=== PATIENT | male | born 1950 | race Caucasian/White ===

== ENCOUNTER 2017-03-28 09:31 | Inpatient (IN) ==
[2017-03-28 09:57] LABS: URINE CULTURE PL NEEDED? NO
[2017-03-28 10:04] LABS: MANUAL DIFF NEEDED? NO
[2017-03-28 10:05] LABS: BILIRUBIN URINE NEGATIVE (NEGATIVE); BLOOD URINE NEGATIVE (NEGATIVE); CLARITY CLEAR (CLEAR); COLOR YELLOW; GLUCOSE URINE NEGATIVE (NEGATIVE); LEUKOCYTES URINE NEGATIVE (NEGATIVE); NITRITE URINE NEGATIVE (NEGATIVE); PROTEIN URINE TRACE mg/dL (NEGATIVE); UROBILINOGEN URINE NORMAL
[2017-03-28] MEDS ORDERED: MORPHINE IV ONE ×2 (10:14→11:42)
[2017-03-28] MEDS ORDERED: NS 1,000 ML IV ONE (10:14)
[2017-03-28] MEDS ORDERED: ZOFRAN IV ONE (10:14)
--- NOTE | 2017-03-28 10:16 | Diag Imaging Result Doc PS360 ---
FLAT/UPRIGHT ABD/1 VIEW CHEST - 03/28/2017 INDICATION: ABD PAIN TECHNIQUE: Four views COMPARISON: 07/26/2016 FINDINGS: Stable pacemaker and sternotomy wires. Stable cardiomegaly and significant pulmonary vascular congestion. No definite infiltrates. There are probably trace pleural effusions similar to prior. There are some borderline gaseous distended loops of small bowel in the left mid abdomen measuring up to 3.5 cm. There is gas and stool throughout the colon. No free air or abnormal calcifications. Stable surgical clips in the right upper quadrant. IMPRESSION: 1. Abnormal but nonspecific bowel gas pattern with some dilated loops of small bowel. 2. Cardiomegaly and significant pulmonary vascular congestion. Probable small effusions. Electronically signed by Aly Smith 03/28/2017 10:14 AM
[2017-03-28 10:25] LABS: CALCIUM 9.8 mg/dL (8.8-10.2); POTASSIUM 4.9 mmol/L (3.5-5.1); TOTAL BILIRUBIN 1.1 mg/dL (0.20-1.00); TOTAL PROTEIN 7.9 g/dL (6.3-8.3)
[2017-03-28 10:40] LABS: URINE CAST NONE SEEN /LPF; URINE CRYSTAL NONE SEEN /HPF; URINE EPITHELIAL CELLS <10 /HPF (<10); URINE RBC <10 /HPF (<10); URINE SOURCE CLEAN CATCH; URINE WBC <10 /HPF (<10)
--- NOTE | 2017-03-28 11:04 | Diag Imaging Result Doc PS360 ---
CT ABD/PELVIS W/ IV CONT ONLY - 03/28/2017 INDICATION: Abd pain TECHNIQUE: A CT dose reduction protocol was used. COMPARISON: 09/08/2015, 07/27/2016 FINDINGS: Stable cardiomegaly and surgical changes to the heart. There is some pulmonary vascular congestion and possible interstitial pulmonary edema in the lung bases. There is mild fatty change of the liver. There are cholecystectomy clips. There is a trace amount of ascites. There is extremely heavy vascular disease of the pelvic branches of the aorta. The left common iliac artery is focally completely occluded. There is severe stenosis of the right common iliac artery as well with over 70% narrowing. There is mild stenosis of the proximal superior mesenteric artery. There is severe stenosis of the origin of the inferior mesenteric artery. No bowel obstruction or inflammation visible. No free air. There is a right renal mass in the midpole measuring 2.4 cm. No hydronephrosis or hydroureter. Advanced degeneration of the thoracolumbar spine. No acute bony lesions. IMPRESSION: 1. Suspicious mass of the right kidney. Renal ultrasound recommended. 2. Severe vascular disease. 3. Trace ascites. 4. Cardiomegaly and possible mild pulmonary edema. 5. Fatty change of the liver. Electronically signed by Aly Smith 03/28/2017 11:02 AM
[2017-03-28 11:23] LABS: BASO% 0.3 % (0.0-0.8); EOS# 0.29 X1000 (0.0-0.7); EOS% 4.2 % (0.0-10.0); HEMATOCRIT 38.7 % (42.0-52.0); HEMOGLOBIN 12.9 g/dL (14.0-18.0); IMM GRAN# 0.01 X1000 (0.0-0.04); IMM GRAN% 0.1 % (0.0-0.5); LYMPH# 0.81 X1000 (1.2-3.4); LYMPH% 11.6 % (20.5-51.1); MCH 32.9 PG (27-31); MCHC 33.3 g/dL (33-37); MCV 98.7 FL (81-99); MONO# 0.46 X1000 (0.11-0.59); MONO% 6.6 % (1.7-9.3); MPV 10.5 FL (7.4-10.4); NEUT% 77.2 % (42.2-75.2); PLT 246 X1000 (130-400); RBC 3.92 XMIL (4.7-6.1)
--- NOTE | 2017-03-28 11:42 | PROVIDER DOCUMENTATION ---
This chart was entered by Juan Francisco Powell Scribe, acting as scribe for Primo Murray MD. HPI-Abdominal Pain/GI Problem - General Chief Complaint: Abdominal Pain Stated Complaint: ABD PAIN Time Seen by Provider: 03/28/17 10:00 Source: patient Allergies/Adverse Reactions: Patient Allergies Allergy/AdvReac Type Severity Reaction Status Date / Time amlodipine besylate * AdvReac Intermediate cough Verified 07/05/15 23:09 [facility] acetaminophen [From [place]] AdvReac ITCHING Verified 07/26/16 19:56 hydrocodone bitartrate * AdvReac ITCHING Verified 07/26/16 19:56 [From [facility] [place]] Home Medications: Home Medication List Medication Instructions Recorded Confirmed Last Taken Type Aspirin [Aspir 81] 81 mg PO DAILY 05/03/12 09/08/15 07/05/15 History Carvedilol [Coreg] 6.25 mg PO DAILY 05/03/12 09/08/15 07/05/15 History Cetirizine HCl [Zyrtec] 10 mg PO DAILY 05/03/12 09/08/15 07/05/15 History Fluticasone 50 Mcg Nasal [place] 1 spray CAROLE DIRECTED PRN PRN 05/03/1207/05/15 History [Flonase] Montelukast [Singulair] 10 mg PO DAILY 05/03/12 09/08/15 07/05/15 History Multivitamin [Multiple Vitamins 1 tab PO DAILY 05/03/12 09/08/15 07/05/15 History Daily] Colchicine [Colcrys] 0.6 mg PO DAILY PRN PRN 09/09/13 09/08/15 07/05/15 History Furosemide [Lasix] 20 mg PO DAILY #30 tablet 09/09/13 09/08/15 07/05/15 Rx Hydralazine HCl 25 mg PO BID 09/09/13 09/08/15 07/05/15 History Carvedilol [Coreg] 12.5 mg PO HS 02/25/15 09/08/15 07/05/15 History Losartan [Cozaar] 12.5 mg PO DAILY 02/25/15 09/08/15 07/05/15 History Spironolactone 12.5 mg PO DIRECTED 02/25/15 09/08/15 07/05/15 History Temazepam [Restoril] 7.5 mg PO HS PRN PRN #30 capsule 03/01/15 09/08/15 Rx Febuxostat [Uloric] 40 mg PO DAILY 03/21/15 09/08/15 07/05/15 History Dabigatran Etexilate Mesylate 150 mg BID 07/26/16 07/26/16 Unknown History [Pradaxa] - History of Present Illness-ABD Nature of Presenting Problems: Patient is a 66 y/o m that presents with abdominal pain that began this am. Rates it when it began as severe, but has improved. denies v/d, fever/chills. reports some nausea but belching more than normal and decrease in gas output. He didn't sleep last pm and hasn't slept much this week. denies chest pain and shortness of breath as well. Abdominal Pain Onset Location: reports: periumbilical, suprapubic Quality of Pain: reports: aching, cramping Severity in ED: reports: moderate Onset/Duration: reports: abrupt, this morning Timing: reports: still present, improving Activities at Onset: reports: none Modifying Factors: worse with: palpation Associated Symptoms: reports: nausea, other (belching). denies: chest pain, diarrhea, dizziness, EENT symptoms, fever/chills, genitourinary problems, loss of appetite, shortness of breath, vomiting Similar Symptoms Previously?: No Recently seen or treated by another doctor?: No Review of Systems - Adult - REVIEW OF SYSTEMS - ADULT Constitutional: denies: chills, fever Eyes: reports: no symptoms reported Ears, Nose, Mouth & Throat: denies: ear discharge, epistaxis, sinus problem, throat pain, throat swelling Cardiovascular: denies: chest pain, palpitations, syncope Respiratory: denies: cough, shortness of breath, wheezing Gastrointestinal: reports: abdominal pain, nausea. denies: constipation, diarrhea, rectal bleeding, vomiting Genitourinary: denies: dysuria, frequency, hematuria Musculoskeletal: denies: back pain, joint pain, neck pain Integumentary: reports: no symptoms reported Neurological: reports: no symptoms reported Psychiatric: reports: no symptoms reported Endocrine: reports: no symptoms reported Hematologic/Lymphatic: reports: no symptoms reported Allergic/Immunologic: reports: no symptoms reported All Other Systems: Reviewed and Negative Past History - Adult - PAST MEDICAL HISTORY-ADULT Review of Records: reports: Old Records Reviewed, Nursing Assessment Review, Medications Reviewed Cardiovascular: reports: cardiac disease, CHF Respiratory: reports: COPD Gastrointestinal: reports: GERD - PRIOR SURGERIES/PROCEDURES Surgical/Procedure History: reports: other (IED) - IMMUNIZATION STATUS Childhood Immunizations: See Nurse Assessment Flu Vaccine: See Nurse Assessment - FAMILY HISTORY Family History: reviewed, not pertinent - SOCIAL HISTORY Smoking: quit greater than 1 year, cigarettes Alcohol Use Frequency: occasionally Living Situation: family Physical Exam-General - PHYSICAL EXAM-ADULT Initial Vital Signs Reviewed: Yes - CONSTITUTIONAL General Appearance: alert, mild distress, anxious - EYES Eyes: PERRL/EOMI, pink conjunctivae - HEAD, EARS, NOSE, MOUTH & THROAT HENMT: normocephalic/atraumatic, moist mucous membranes, normal ENT inspection - NECK Neck: full range of motion, normal inspection - RESPIRATORY Respiratory: lungs clear, normal breath sounds, no respiratory distress, no accessory muscle use - CARDIOVASCULAR Cardiovascular: regular rate, rhythm, no edema - GASTROINTESTINAL (ABDOMEN) Abdominal Exam: normal bowel sounds, no organomegaly, no pulsatile mass, distended, tenderness (diffusely generalized) - MUSCULOSKELETAL Back Exam: no CVA tenderness, no vertebral tenderness Extremity: normal range of motion, normal inspection, no pedal edema - SKIN Integumentary: normal color, warm/dry - NEUROLOGIC 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, no motor/sensory deficits - PSYCHIATRIC Psych/Mental Status: normal thought content, normal thought process, oriented x 3, anxious Progress - PLAN OF CARE/RESULTS Progress/Plan/Lab Results: Vital Signs - 8 hr 03/28/17 09:33 Temperature 97.9 F Pulse Rate 78 Respiratory Rate 22 Blood Pressure 102/73 O2 Sat by Pulse Oximetry 98 Laboratory Results - last 24 hr 03/28/17 09:44 Urine Color YELLOW Urine Clarity CLEAR Urine pH 6.0 Ur Specific [place] 1.020 Urine Protein TRACE A Urine Ketones NEGATIVE Urine Blood NEGATIVE Urine Nitrite NEGATIVE Urine Bilirubin NEGATIVE Urine Urobilinogen NORMAL Urine WBC NEGATIVE Urine Glucose NEGATIVE Orders Category Date Time Status Saline Loc DIRECTED Care 03/28/17 09:37 Active NPO Diet 03/28/17 09:[address] ABD/PELVIS W/ IV CONT ONLY [CT] Stat Exams 03/28/17 10:13 Ordered FLAT/UPRIGHT ABD/1 VIEW CHEST [RAD] Stat Exams 03/28/17 09:37 Completed AMYLASE [CHEM] Stat Lab 03/28/17 09:50 Received BNP [PRO B-NATRIURETIC PEPTIDE] Stat Lab 03/28/17 09:50 Received CBC WITH ELECTRONIC DIFF [HEME] Stat Lab 03/28/17 09:37 Ordered COMPREHENSIVE METABOLIC PANEL [CHEM] Stat Lab 03/28/17 09:50 Received LIPASE [CHEM] Stat Lab 03/28/17 09:50 Received TROPONIN T Stat Lab 03/28/17 09:[address] W/POSS RFLX CULT [URINALYSIS] Stat Lab 03/28/17 09:44 Results 0.9% Sodium Chloride Inj [Ns] 1,000 ml Med 03/28/17 10:14 Active IV 250 mls/hr Morphine Med 03/28/17 10:14 Discontinued 4 mg IV NOW ONE Ondansetron [Zofran] Med 03/28/17 10:14 Discontinued 4 mg IV NOW ONE [address] abd/pelv ct report as follows: 1) suspicious mass on R kidney 2)severe vascular dz 3)trace ascites 4)CMG AND MILD PULMONARY EDEMA 5)fatty change of the liver [id number] paged Result Diagrams: 03/28/17 09:50 03/28/17 09:50 - XRAY 1 XRAY Study: Chest, Abdomen Impression: Abnormal XRAY Interpretation: cmg,pulmonary vascular congestion, NSBGP with dilated small bowel loops - CT/MRI 1 CT Study: Abdomen, Pelvis Impression: Abnormal CT Results: see progress noted for report - CONSULTS/PCP/HOSPITALIST Notification #1 *Consult/PCP/Hospitalist*: Dr. Hardy Time Discussed: 11:40 Consult Disposition: Will see in ED, Admit Departure - Departure Date of Disposition Decision: 03/28/17 Time of Disposition Decision: 11:41 DIAGNOSIS: Abdominal pain, Stenosis of inferior mesenteric artery, Renal mass Disposition: ADMITTED INPATIENT 09 Certified Medical Emergency: Emergent Condition: Stable Referrals and Follow-Ups: Jose Hardy MD [Primary Care Provider] - - Critical Care Note This patient required my direct & personal management of CC.: Yes Total Time (mins): 35 Critical Care Statement: This patient required my direct personal management to treat or rule out processes, the absence of which, could potentiallly result in sudden, clinically significant life or limb threatening deterioration. Attestation - Physician/ JODIE Attestation Patient care was provided by Advanced Practice Provider:: No The physician spent face to face time with patient:: Yes Advanced Practice Provider documentation review:: Supervising physician onsite and consulted in the evaluation and care of this patient. The physician did have a face to face encounter with the patient. This chart was documented by the indicated scribe, (Juan Francisco Powell, Thomas) and accurately reflects the services I performed and decisions made by me, Primo Murray MD, as attested by the provider's signature.
--- NOTE | 2017-03-28 13:22 | Diag Imaging Result Doc PS360 ---
EXAM: US RENAL 2 (RETROPER) COMPLETE HISTORY: R kidney mass TECHNIQUE: Renal ultrasound transabdominal COMMENT: There is a somewhat heterogeneous mass anteriorly in the midportion of the right kidney measuring 3 cm in diameter. This was not demonstrated on the previous ultrasound 07/06/2015. There is no evidence of hydronephrosis. The urinary bladder is unremarkable. Right kidney is 9.6 x 4.3 x 5 cm the left is 10.9 x 4.6 x 5.2 cm. There is a 1.6 cm cyst in the lower pole of the left kidney. IMPRESSION: Solid mass in the right kidney as previously demonstrated on CT 03/28/2017. Electronically signed by Calvin Chinchilla 03/28/2017 1:20 PM
--- NOTE | 2017-03-28 14:54 | HISTORY AND PHYSICAL ---
PRIMARY CARE PHYSICIAN: Dr. Hardy. CHIEF COMPLAINT: Abdominal pain. HISTORY OF PRESENT ILLNESS: This is a 66-year-old man who presented to the emergency room complaining of abdominal pain that began this morning. He states that it began as severe; he rated it a 10/10. It has slightly decreased through the day. He denied any vomiting, diarrhea, fever, chills. He did have some nausea and belching, and he did state that the nausea and abdominal pain was relieved somewhat after belching. He denied any diarrhea, constipation, black or bloody stools. He does describe the pain as an aching cramping type pain. It is throughout as a generalized pain to his abdomen, but it seems to be worse periumbilical and suprapubic, and he is more tender to palpation in these areas. He denies any prior episodes like this. A CT scan was performed in the emergency room and he was found to have a suspicious mass of the right kidney, severe vascular disease having a an occluded left common iliac artery, severe stenosis of the right common iliac artery with mild stenosis of the proximal superior mesenteric artery with severe stenosis of the origin of the inferior mesenteric artery. This was discussed with Dr. Crawford per Dr. Murray, the ER doctor. Dr. 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 The patient is being admitted to [facility] for further evaluation and treatment. 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 He is on chronic anticoagulation. PAST SURGICAL HISTORY: Laparoscopic cholecystectomy. Umbilical hernia repair. Mitral valve replacement x2. Status post permanent pacemaker/ICD. Vasectomy. SOCIAL HISTORY: He is . He lives with his . He denies alcohol, tobacco or illicit drug use. HOME MEDICATIONS: A list will be obtained. DRUG ALLERGIES: Amlodipine which causes a cough and hydrocodone which causes itching. REVIEW OF SYSTEMS: A 14 point review of systems is discussed with the patient with pertinent positives stated in HPI. He denied any chest pain, palpitations, dizziness, syncope, any vomiting diarrhea, constipation, black or bloody vomitus, black or bloody stools, hematuria, dysuria ,frequency, urgency. PHYSICAL EXAMINATION: GENERAL: This is a 66-year-old male who is sitting up in the bed in no distress. VITAL SIGNS: Blood pressure is 113/82 with a heart rate of 75, respirations are 20, temperature is 97.4 degrees with room air saturations of 97% to 99%. HEENT: Head is normocephalic, atraumatic. Pupils equal, round, react to light. EOMS are intact. Sclerae anicteric. Mucous membranes are moist. NECK: Supple. Trachea midline. CARDIOVASCULAR: Regular rate and rhythm. S1 and S2 appreciated. PULMONARY: Breath sounds are clear with no increased work of breathing noted. GASTROINTESTINAL: Abdomen is distended, soft with generalized tenderness, greater at periumbilical and suprapubic regions. He does have decreased bowel sounds. SKIN: Warm and dry. NEUROLOGIC: He is alert and oriented x3. LABORATORY: WBC is 6.9 with hemoglobin 12.9, hematocrit 38.7, and platelets of 246. Sodium is 138, potassium 4.9. BUN 18, creatinine 1.4 with a glucose of 120. Urinalysis is essentially negative. IMAGING: CT scan of the abdomen and pelvis as stated above. Renal ultrasound revealed a 3 cm solid mass in the right kidney that was not present on previous ultrasound of June 2015. ASSESSMENT AND PLAN: 1. Abdominal pain. He will remain on nothing by mouth. We will give intravenous pain medication. 2. Inferior mesenteric artery stenosis. Dr. Crawford in general surgery has been notified. We will consult Dr. Baron. He will remain on nothing by mouth until their plan of care is formulated. 3. Right renal mass. We will consult urology. 4. Chronic kidney disease. His creatinine is 1.4, and looking back his baseline has been around 1.4 to 1.5. We will monitor. 5. History of atrial fibrillation paroxysmal with chronic anticoagulation. We will identify his corrected medications for anticoagulation and continue. He will be placed on telemetry. 6. Mitral valve replacement times two. Aware. 7. Pacemaker implantable cardioverter defibrillator placement. Aware. 8. History of systolic heart failure. We will identify his home medications and continue as appropriate. 9. History of extensive bilateral deep vein thrombosis July 2016. We will continue with anticoagulation. Further treatments pending hospital course. Dictated by VAISHALI Vazquez for Ventura Dang MD cc: VAISHALI Vazquez MD
[2017-03-28] MEDS: MORPHINE IV PRN (17:39)
[2017-03-28] MEDS: FLAGYL 500 MG/NS 500 MG/100 ML IVPB IV SCH ×2 (17:43→22:48)
[2017-03-28] MEDS: LEVAQUIN 500 MG/D5W 500 MG/100 ML IVPB IV SCH (17:43)
[2017-03-28] MEDS: ZOFRAN IV PRN (19:14)
--- NOTE | 2017-03-28 19:56 | CONSULTATION ---
DATE OF CONSULTATION: 03/28/2017 REQUESTING PHYSICIAN: Dr. Jose Hardy REASON FOR CONSULTATION: Consult concerning abdominal pain. HISTORY OF PRESENT ILLNESS: A 66-year-old male presenting with abdominal pain that started this morning. He said initially it was a 10/10, but has decreased through the day. He denied nausea, vomiting, fever, chills. He describes the pain as bilateral lower quadrant, but more intense on the right. He denies any kind of change in his bowel habits or dark tarry stools, but he did describe the pain as cramping-like pain at some point. Again, he is feeling better at this point. He had a CT scan done in the emergency department that showed a suspicious mass on his right kidney. Also, severe vascular disease with an occluded left common iliac artery, severe stenosis of the common right common iliac artery. There is also some mild stenosis in the proximal SMA and severe stenosis of the GUILLERMO. The colon on my view, interpretation appears to be perfused. He was transferred from [place] to [facility] for further evaluation. He is currently feeling better. PAST MEDICAL HISTORY: 1. Chronic systolic congestive heart failure. 2. Proximal atrial fibrillation, status post pacemaker. 3. COPD. 4. Mitral valve replacement x2. 5. Chronic kidney disease. 6. History of extensive bilateral lower extremity DVTs. PAST SURGICAL HISTORY: Laparoscopic cholecystectomy. Umbilical hernia repair. Mitral valve placement x2. Placement of a permanent pacemaker. Vasectomy. SOCIAL HISTORY: Denies alcohol, tobacco or illicit drugs. HOME MEDICATIONS: Reviewed. He also has been started on antibiotics. ALLERGIES: Amlodipine and hydrocodone. REVIEW OF SYSTEMS: A full 10 point review of systems obtained, negative except as specified in HPI. PHYSICAL EXAMINATION: Vital Signs: Patient is currently afebrile. His vital signs are stable. General: No acute distress. male, looks stated age. HEENT: Normocephalic, atraumatic. Pupils equal, round, react to light. Mucous membranes moist. Oropharynx benign. Neck: Supple. Trachea midline. Cardiovascular: Regular rate and rhythm. Lungs: Some coarse sounds noted bilaterally, but no increased labored breathing. Abdomen: Distended, but soft. No peritonitis. He has some tenderness in the bilateral lower quadrants. It appears the right side slightly more than the left, although again, no peritoneal signs. No pain out of proportion to exam. Extremities: Moves all extremities. Neurologic: Grossly intact. Skin: No signs of jaundice. Vascular: All extremities perfused. LABORATORY: White blood cell count 6, hematocrit 38, platelet count 246,000. Remainder of laboratory reviewed. His BNP is almost 9000. CT scan renal ultrasound images reviewed and reports reviewed and noted above. ASSESSMENT AND PLAN: A 66-year-old male with abdominal pain and multiple medical comorbidities. 1. Abdominal pain. At this time, unsure of the exact etiology. This could be related to either kidney mass or something to do with his intestinal tract. He does have what appears to be peripheral vascular disease that does involve some of his abdominal vasculature. Although his colon looks perfused to me on CT scan, I suspect he has some collateralization as his internal mammary artery is stenotic. Given his presentation, I would suspect that colonoscopy might be merited to evaluate if he actually has ischemic bowel, although he does not have the same physical exam consistent with ischemic bowel. I would recommend continued current treatment and resuscitation. It should be noted that his lactic acid was 2.5 at this point. 2. Right kidney mass. At this time, being evaluated by Urology. Again this could be the cause of his pain. 3. Multiple medical comorbidities, at this time, being managed by the hospitalist service. He does have Cardiology consulted. At this time, I think the patient is likely high risk for surgical intervention. Therefore, I would like to try to support him nonoperatively as best as possible. If he does have to have surgery, the family does wish potentially to go down to [place], unless it is emergent and we have to do it immediately, but hopefully we can avoid this. Again, I appreciate the consult. I will continue to follow with you. cc: Jb Crawford MD
--- NOTE | 2017-03-28 20:46 | CONSULTATION ---
DATE OF CONSULTATION: 03/28/2017 CONSULTING PHYSICIAN: Balaji Figueroa MD with Hospitalist Service. REASON FOR CONSULTATION: Right renal mass. HISTORY OF PRESENT ILLNESS: A 66-year-old male with past medical history significant for CHF, atrial fibrillation, COPD, chronic kidney disease and history of DVTs. He presented to [facility] with abdominal pain. He underwent imaging on 03/28/[address] abdomen and pelvis without contrast which revealed a 2.4 cm right renal mass without evidence of hydronephrosis or hydroureter. He reports intermittent right flank pain. He denies previous knowledge of renal masses. He denies history of hematuria, dysuria, recurrent UTIs or chronic flank pain. He reports his pain is currently in the right lower quadrant which does not radiate. Exacerbating symptoms would include being active. He denies alleviating symptoms. He denies associated fevers or chills. He does have nausea and reports having vomited 20 minutes before I saw him. PAST MEDICAL HISTORY: 1. CHF. 2. Mitral valve prolapse. 3. COPD. 4. Atrial fibrillation. 5. Chronic kidney disease. 6. DVTs. PAST SURGICAL HISTORY: Cholecystectomy, umbilical hernia repair, mitral valve replacement, pacemaker, vasectomy. HOME MEDICATIONS: Aspirin, Coreg, Flonase, Singulair, Zyrtec, Colcrys, Lasix, Cozaar, spironolactone, Uloric, Flomax 0.4 mg daily, Xarelto daily, multivitamin, hydralazine. SOCIAL HISTORY: He reports quitting smoking 30 years ago. He denies alcohol or illicit drug use. FAMILY HISTORY: No malignancies. REVIEW OF SYSTEMS: Reviewed 12 systems and negative except as noted in HPI. PHYSICAL EXAMINATION: Vital Signs: T 98.2 degrees, P 76, BP 111/83. General: No acute distress. Pleasant male. HEENT: Normocephalic, atraumatic. Cardiovascular: Regular rate and rhythm. Pulmonary: Bilateral breath sounds. Abdomen: Nontender, distended. Genitourinary: Normal external male genitalia. Meatus without abnormalities, testes descended bilaterally and atrophic but no masses. Lymphatic: No inguinal lymphadenopathy. Back: No CVA tenderness. Dermatologic: No obvious skin rashes noted. Psychiatric: Appropriate mood and affect. Neurologic: Alert and oriented x3. PERTINENT LABS: White cell count of 7000, hematocrit 39, creatinine of 1.4 which per record review appears to be his baseline. Urinalysis was positive for protein but negative for blood, white cells or bacteria. PERTINENT IMAGES: CT abdomen and pelvis on 03/28/2017 revealed suspicious 2.4 cm mass. This was followed up with a renal ultrasound on 03/28/2017 which confirmed a solid 3 cm right renal mass. ASSESSMENT AND PLAN: A 66-year-old male with multiple medical comorbidities, who has right-sided abdominal pain. I have discussed with the patient that his pain is unlikely to be related to his renal mass given its size. I agree with consultation by Dr. Crawford and Dr. Baron as he likely has underlying abdominal pathology. I have discussed with the patient and his family who is present at bedside that should all the other causes be ruled out if the family and the patient agree to undergo surgery given the endophytic nature of the mass, he would benefit from a right nephrectomy. However, I am concerned about his overall surgical candidacy given his multiple comorbidities and his baseline renal insufficiency. We discussed that he would be at risk for losing renal function and hence potential dialysis, and he will obviously not do well on it. In my opinion, the pain is related to another source and I would like to be conservative. The patient's family is in agreement. PLAN: 1. I do not recommend emergent urologic intervention. 2. We will follow up with Drs. Crawford's and Tod's recommendations. 3. Again his treatment for the right renal mass would be a likely robotic right radical nephrectomy given the endophytic nature of the mass and I do not feel that it would relieve his pain but if he does not make progress and the family decides to, we will revisit surgical management. 4. We will follow. Thank you for your consultation. cc: Theron Rankin MD
[2017-03-28] MEDS ORDERED: PHENERGAN IM ONE (22:42)
[2017-03-29] MEDS: ZOFRAN IV PRN ×2 (04:03→18:55)
[2017-03-29] MEDS: MORPHINE IV PRN (04:03)
[2017-03-29] MEDS: FLAGYL 500 MG/NS 500 MG/100 ML IVPB IV SCH ×4 (04:06→23:24)
[2017-03-29] MEDS ORDERED: PHENERGAN IM ONE (04:15)
--- NOTE | 2017-03-29 06:35 | PROGRESS NOTE ---
DATE: 03/29/2017 SUBJECTIVE: Patient doing okay. He says his pain is better. OBJECTIVE: Vital Signs: Patient is currently afebrile. His vital signs are stable. General: No acute distress. Resting comfortably. HEENT: Normocephalic, atraumatic. Pupils equal, round, react to light. Mucous membranes moist. Oropharynx benign. Neck: Supple. Trachea midline. Cardiovascular: Regular rate and rhythm. Lungs: Some coarse sounds noted bilaterally but no increased labored breathing. Abdomen: Less distended but still soft. No peritoneal signs. He has got some mild tenderness to the bilateral lower quadrants but again no peritoneal signs. No pain out of proportion to exam. Extremities: Moves all extremities. Neurologic: Grossly intact. Skin: No signs of jaundice. Vascular: All extremities perfused. LABORATORY: Pending for this morning. ASSESSMENT/PLAN: A 66-year-old male with multiple medical comorbidities presenting, although right renal mass and potential for ischemic bowel. 1. Abdominal pain. At this time, unsure of the exact etiology. At this time, a CT scan did have severe stenosis in multiple vessels including his inferior mesenteric artery, although I think his bowel looks perfused in all the CT scan imaging. Gastroenterology has been consulted. I think that having them do a colonoscopy would further evaluate the bowel for any kind of signs of ischemia. Clinically, I do not think he has ischemic bowel given this, physical exam, but we will need to continue to follow. 2. Right kidney mass. At this time, being managed by Urology. 3. Multiple medical comorbidities currently being managed by the hospitalist service. We will continue to follow with you. I appreciate the consult. cc: Jb Crawford MD
[2017-03-29 08:59] LABS: HEMATOCRIT 37.9 % (42.0-52.0); HEMOGLOBIN 12.4 g/dL (14.0-18.0); MCH 32.6 PG (27-31); MCHC 32.7 g/dL (33-37); MCV 99.7 FL (81-99); MPV 10.2 FL (7.4-10.4); RBC 3.8 XMIL (4.7-6.1)
[2017-03-29 09:20] LABS: AGAP 16; BUN 26 mg/dL (8-22); CHLORIDE 104 mmol/L (98-107); COSMO 284; HDL 38 mg/dL (35-55); IRON SATURATION 11 %; LDL 57 mg/dL; SODIUM 140 mmol/L (136-145); TCO2 20 mmol/L (25-35); TIBC 336 ug/dL; TOTAL IRON 37 ug/dL (53-167); TRIGLYCERIDES 44 mg/dL (39-160); UNBOUND IRON 299 ug/dL (112-346); VLDL 9 mg/dL
[2017-03-29] MEDS ORDERED: DILAUDID IV PRN (13:29)
[2017-03-29] MEDS ORDERED: HEPARIN 25,000 UNITS/D5W 25,000 UNIT/250 ML IV.SOLN IV SCH (13:30)
--- NOTE | 2017-03-29 14:38 | PROGRESS NOTE ---
DATE: 03/29/2017 SUBJECTIVE: This patient is still complaining of abdominal discomfort, he is not tolerating morphine, he has been having nausea as well. Surgery Department and Gastroenterology Department are following this patient. OBJECTIVE: Vital Signs: Temperature 98 degrees, pulse 75, blood pressure 110/69, oxygen saturation 96 on room air. HEENT: Head normocephalic. No trauma. PERRLA. Neck: Supple. No JVD. No masses. Central trachea. Chest: Clear to auscultation. No wheezing. No rales. Abdomen: Soft, mild generalized tenderness to palpation, but mostly at the level of the left and right flank. Extremities: No edema. No clubbing. No cyanosis. Neurological examination: The patient is alert and oriented x3. No focal deficits. LABORATORY: WBC 6.1, hemoglobin 12.4, hematocrit 37.9, platelet 244. Sodium 140, potassium 5, chloride 104, bicarbonate 20. BUN 26, creatinine 1.3, glucose 97, calcium 9, iron 37, total iron binding capacity 336, ferritin 73. ASSESSMENT AND PLAN: 1. Abdominal pain: This is probably related with inferior mesenteric artery stenosis. Dr. Crawford from general surgery has been notified, and he is following this patient, as well as Gastroenterology Department. For now, we are going to start this patient on heparin drip because he has a history of mitral valve replacement, and we will monitor this patient. For the pain, we will use Dilaudid. 2. Inferior mesenteric artery stenosis, aware. 3. Right renal mass. Urology Department has been consulted. They already evaluated this patient. There is no plan for surgery or any kind of procedure at this moment. 4. Chronic kidney disease. This is his baseline. We will continue to monitor. 5. History of atrial fibrillation, paroxysmal with chronic anticoagulation, aware. I will put this patient on heparin drip. 6. Mitral valve replacement times two, aware. 7. Implantable cardioverter defibrillator pacemaker, implantable cardioverter defibrillator placement, aware. 8. History of systolic heart failure. Continue with his home medication. 9. History of bilateral deep vein thrombosis in July 2016. Continue with anticoagulation as I mentioned before. cc: Balaji Figueroa MD
--- NOTE | 2017-03-29 14:49 | ECHO REPORT ---
ORDER DATE: 03/28/2017 INDICATION: CHF. Pulmonary edema. Atrial fibrillation. History of ICD implantation. History of mitral valve replacement. FINDINGS: 1. Right atrium is mildly enlarged at 4.7 cm. 2. There is moderate tricuspid regurgitation. The RV systolic pressure is 63 suggesting pulmonary hypertension. There is enlargement of the right ventricle with at least moderate reduction in RV systolic function. 3. Mild pulmonic insufficiency. 4. Mild left atrial enlargement at 4.4 cm. 5. There is a well-seated prosthetic in the mitral position. The peak gradient across valve is 5 with a mean of 2. There is mild mitral regurgitation identified. 6. The left ventricle is severely dilated with an end-diastolic dimension of 6.9 cm. No evidence of left ventricular hypertrophy with a posterior and interventricular septal wall thickness 1 and 0.8 cm respectively. There is severe reduction in LV systolic function with an estimated EF in the 10% range with severe global hypokinesis. Definity echocardiogram contrast was used and did not identify any evidence of significant LV thrombus. 7. The aortic valve appears to open well on 2-dimensional imaging although it is somewhat poor quality. There is no significant gradient. The valve area planimetry was 1.8 cm2. No evidence of aortic insufficiency. 8. The aorta is somewhat dilated at the root with a dimension of 4.3 cm. 9. No pericardial effusion seen. cc: MD Ryan Thakkar CRNP
[2017-03-29] MEDS: LEVAQUIN 500 MG/D5W 500 MG/100 ML IVPB IV SCH (16:27)
[2017-03-29 17:17] LABS: INR 1.5; PROTIME 16.2 Seconds (9.2-11.7)
[2017-03-29] MEDS: DILAUDID IV PRN (20:58)
[2017-03-30] MEDS: DILAUDID IV PRN ×3 (03:34→20:44)
[2017-03-30] MEDS: ZOFRAN IV PRN ×3 (03:41→20:44)
[2017-03-30] MEDS: HEPARIN 25,000 UNITS/D5W 25,000 UNIT/250 ML IV.SOLN IV SCH ×2 (03:51→14:51)
[2017-03-30] MEDS: FLAGYL 500 MG/NS 500 MG/100 ML IVPB IV SCH ×4 (05:11→22:53)
--- NOTE | 2017-03-30 07:09 | PROGRESS NOTE ---
DATE: 03/30/2017 SUBJECTIVE: Patient doing okay. His pain is better. OBJECTIVE: Vital Signs: The patient is currently afebrile. His vital signs have been stable. General: No acute distress. Resting comfortably. HEENT: Normocephalic, atraumatic. Pupils equal, round, reactive to light. Mucous membranes moist. Oropharynx benign. Neck: Supple. Trachea midline. Cardiovascular: Regular rate and rhythm. Lungs: Grossly clear, but also some coarse sounds noted, but no increased labored breathing. Abdomen: Soft, less distended. No peritoneal signs. Some mild tenderness to bilateral lower quadrants. No pain out of proportion to exam. Extremities: Moves all extremities. Neurologic: Grossly intact. Skin: No signs of jaundice. Vascular: All extremities perfused. LABORATORY DATA: Currently pending. ASSESSMENT AND PLAN: A 66-year-old male with multiple medical comorbidities, presenting with a right renal mass and potential for ischemic bowel. 1. Abdominal pain. At this time, etiology is still unclear. I do not suspect that he has ischemic bowel, although we cannot completely rule this out. Gastroenterology has been consulted. They are preparing him for potential colonoscopy in the near future. Will continue to monitor. 2. Right kidney mass. At this time, being managed by Urology. 3. Multiple medical comorbidities, currently being managed by the Hospitalist Service. cc: Jb Crawford MD
[2017-03-30 08:11] LABS: HEMATOCRIT 39.5 % (42.0-52.0); HEMOGLOBIN 12.7 g/dL (14.0-18.0); MCH 32.6 PG (27-31); MCHC 32.2 g/dL (33-37); MCV 101.3 FL (81-99); MPV 9.8 FL (7.4-10.4); RBC 3.9 XMIL (4.7-6.1)
[2017-03-30 08:58] LABS: MAGNESIUM 2.1 mg/dL (1.5-2.7); POTASSIUM 5.5 mmol/L (3.5-5.1)
--- NOTE | 2017-03-30 10:25 | CONSULTATION ---
DATE OF CONSULTATION: 03/29/2017 REASON FOR REFERRAL: Abdominal pain. HISTORY OF PRESENT ILLNESS: This is a 66-year-old, white male, who we have seen in our office in the past. He reports onset of abdominal pain. He states over the weekend, he had some problems with constipation. He had taken a laxative that he had been prescribed, Linzess. He does not take this on a daily basis. He describes his pain as a twisting pain. He presented to [facility] on Monday and was transferred to [facility] for further evaluation. A CT scan showed a suspicious mass of the right kidney with severe vascular disease with an occluded left common iliac artery. Severe stenosis of the right common iliac artery with mild stenosis of the proximal superior mesenteric artery, and severe stenosis of the origin of the inferior mesenteric artery. He has been evaluated by Dr. Crawford and also evaluated by Dr. Rankin. Currently, the patient is receiving morphine as needed for pain. He states his pain is somewhat improved. He is complaining of some nausea with the morphine. He also states he does not tolerate [place] very well. He reports over the last month he has had a cough with sputum production and nose bleeds. He reports worsening abdominal pain over the weekend, especially at night and describes it under or above the navel. He has also reported abdominal distention and constipation. His last EGD and colonoscopy was in February 2015, which showed a hiatal hernia and colon polyp. He also has diagnosis of cholelithiasis and choledocholithiasis and had cholecystectomy in 2014 and also required an ERCP in 2014. PAST MEDICAL HISTORY: For chronic systolic congestive heart failure, paroxysmal atrial fibrillation, status post pacemaker and ICD placement. COPD. He had a mitral valve replacement x2, reported as a bovine valve. Chronic kidney disease. History of bilateral DVTs. PAST SURGICAL HISTORY: Laparoscopic cholecystectomy in 2014. ERCP in 2014. History of umbilical hernia repair and mitral valve replacement x2. Pacemaker/ICD placement. Vasectomy. ALLERGIES: To Norvasc causing a cough. [place] causes itching. HOME MEDICATIONS: Xarelto 20 mg daily. Last taken on Monday night. Colcrys 0.6 mg daily. Coreg 6.25 mg daily. Aspirin 81 mg daily. Flonase as directed. Cetirizine 10 mg daily. Uloric 40 mg daily. Singulair 10 mg daily. Cozaar 12.5 mg every night. Spironolactone 12.5 mg as directed. Hydralazine 25 mg twice daily. Coreg 12.5 mg at night. Tylenol with codeine No. 3, one every 4-6 hours as needed. Lasix 20 mg daily, Flomax 0.4 mg daily. Centrum Silver 1 daily. SOCIAL HISTORY: He is . He denies alcohol or tobacco use. REVIEW OF SYSTEMS: Per HPI. PHYSICAL EXAM: Vital Signs: Temperature 98.0, pulse 77, respirations 18, blood pressure 110/78. General: Patient is awake and alert, in no acute distress. HEENT: Normocephalic, atraumatic. Pupils equal, round, reactive to light. Sclerae nonicteric. Cardiovascular: Regular rate and rhythm. Respiratory: Lung sounds essentially clear bilaterally. Gastrointestinal: Abdomen is soft. He does have tenderness with palpation. Extremities: No lower extremity edema noted. Neurologically: Cranial nerves 2-12 grossly intact. Patient is awake, alert, and oriented to person, place, and time. DIAGNOSTIC RESULTS/LABORATORY: Hematology: White count 6.11, hemoglobin 12.4, hematocrit 37.9, MCV 99.7. Coagulation: ProTime 16.2, INR 1.50, PTT 33. Chemistry: Sodium 140, potassium 5.0, chloride 104, CO2 of 20, BUN 26, creatinine 1.3. Iron 37, TIBC 336%, saturation 11, ferritin 73. Total bilirubin 1.10. AST 30, ALT 26, alkaline phosphatase 104, amylase 99, lipase 54. Plasma lactate 2.5. Vitamin B12 of 1470, folate 36.9. TSH 3.80, free T4 of 1.55. CT scan of the abdomen and pelvis, showing suspicious mass of the right kidney. Renal ultrasound: Severe vascular disease. Trace ascites. Cardiomegaly and possible pulmonary edema. Fatty change of the liver. Renal ultrasound showed solid mass in the right kidney. ASSESSMENT: 1. Abdominal pain. 2. Right renal mass. Dr. Rankin has seen the patient, and is following. 3. Inferior mesenteric artery stenosis. The patient has been seen by Dr. Crawford and he is following Other medical problems: 1. History of atrial fibrillation on chronic anticoagulation. 2. History of mitral valve replacement, pacemaker and defibrillator placement. 3. History of congestive heart failure. 4. History of deep vein thrombosis. PLAN: Continue supportive care. We will continue to monitor the patient. We will bridge him with heparin drip. He is off of Xarelto for right now in case endoscopy or surgery is warranted. Dr. Baron has discussed the case with Dr. Crawford. Further plans will be made by them. Thank you for this consultation. Dictated by VAISHALI Bonds for Shiraz Baron MD cc: VAISHALI Kuhn MD
[2017-03-30] MEDS ORDERED: FLONASE NAS PRN (13:41)
[2017-03-30] MEDS ORDERED: MIRALAX PO ONE (13:54)
[2017-03-30] MEDS: NS 1,000 ML IV SCH (14:52)
--- NOTE | 2017-03-30 15:15 | PROGRESS NOTE ---
DATE: 03/30/2017 SUBJECTIVE: This patient states that he is feeling better, he is tolerating p.o. Family members at the bedside. All their questions were answered. I restarted most of his home medications, we will continue to monitor. OBJECTIVE: Vital Signs: Temperature 97.6 degrees, pulse 80, respiratory rate 18, blood pressure 107/73, O2 saturation 97% on room air. HEENT: Head normocephalic. No trauma. PERRLA. Neck: Supple. No JVD. No masses. Central trachea. Chest: Clear to auscultation. No wheezing. No rales. Abdomen: Soft. Mild generalized tenderness to palpation but mostly at the level of the flanks. Extremities: No edema. No clubbing. No cyanosis. Neurological: The patient is alert and oriented x3. No focal neurological deficits. He is answering all my questions properly. LABORATORY: WBC 7.9, hemoglobin 12.7, hematocrit 39.5, platelets 250,000. Sodium 139, potassium 5.5, chloride 101, bicarbonate 25, BUN 35, creatinine 1.7, glucose 114, calcium 9, magnesium 2.1. ASSESSMENT AND PLAN: 1. Abdominal pain. This is probably related with inferior mesenteric artery stenosis. Dr. Crawford from General Surgery has been following this patient closely as well as Gastroenterology Department. For now, we are going to keep an eye on this patient. He is getting heparin drip because he has a history of mitral valve replacement, for this patient's pain we will continue with Dilaudid. 2. Inferior mesenteric artery stenosis, as above. 3. Right renal mass. Urology Department has been consulted. They already evaluated this patient. There is no plan for surgery or any kind of intervention at this moment. 4. Chronic kidney disease. His creatinine last year was between 1.2 and 1.6. Today it is 1.7 and the BUN is 35. I will keep an eye on this. I will not start this patient on an TANK inhibitor or Lasix, he recently had an abdominal and pelvis CT scan with IV contrast, I will avoid any kind of nephrotoxic medication. 5. History of atrial fibrillation, paroxysmal with chronic anticoagulation, aware. Continue with heparin drip. 6. Mitral valve replacement x2. Aware. 7. Implantable cardioverter-defibrillator pacemaker, aware. 8. History of systolic heart failure. Continue with home medications. 9. History of bilateral DVT in July 2016. Continue with anticoagulation as I mentioned before. cc: Balaji Figueroa MD
[2017-03-30] MEDS: LEVAQUIN 500 MG/D5W 500 MG/100 ML IVPB IV SCH (16:03)
[2017-03-30] MEDS: APRESOLINE PO SCH (20:59)
[2017-03-30] MEDS: COREG PO SCH (20:59)
[2017-03-31] MEDS: HEPARIN 25,000 UNITS/D5W 25,000 UNIT/250 ML IV.SOLN IV SCH ×2 (00:49→16:29)
[2017-03-31] MEDS: NS 1,000 ML IV SCH ×2 (05:22→08:38)
[2017-03-31] MEDS: PHENERGAN IV PRN ×2 (05:30→22:16)
[2017-03-31] MEDS: FLAGYL 500 MG/NS 500 MG/100 ML IVPB IV SCH ×4 (05:32→22:30)
[2017-03-31] MEDS: SODIUM CHLORIDE 0.9% INJ PRN (05:34)
--- NOTE | 2017-03-31 06:39 | PROGRESS NOTE ---
DATE: 03/31/2017 SUBJECTIVE: The patient is doing okay. He did have some respiratory issues last night. We got a chest x-ray that I reviewed personally, but do not have official report yet. It looked relatively clear although there is some haziness bilaterally in the lower lobes. Otherwise, he reports his pain in his abdomen is better. OBJECTIVE: Vital Signs: Patient is currently afebrile. His vital signs have been stable. General: No acute distress resting comfortably. HEENT: Normocephalic atraumatic. Pupils are equal, round and reactive to light. Mucous membranes are moist. Oropharynx benign. Neck: Supple. Trachea midline. Cardiovascular: Regular rate and rhythm. Lungs: Coarse sounds noted bilaterally but no increased labored breathing. Abdomen: Soft and less distended. No peritoneal signs. He still has some mild tenderness in the bilateral lower quadrants, but again no pain out of proportion to exam. Extremities: Moves all extremities. Neurologic: Grossly intact. Skin: No signs of jaundice. Vascular: All extremities perfused. LABORATORY: Currently pending. Chest x-ray reviewed and noted above. ASSESSMENT/PLAN: A 66-year-old male with multiple medical comorbidities presenting with a right renal mass and the potential for ischemic bowel. 1. Abdominal pain at this time, the etiology is still unclear. We are awaiting GI for potential colonoscopy. Clinically, I do not think that he has ischemic bowel. We will follow with you. 2. Right kidney mass at this time being managed by Urology. 3. Multiple medical comorbidities currently being managed by the hospitalist service. He did have somewhat of a change in his respiratory status last night, but these have resolved. His chest x-ray did not show any major acute process besides some haziness in the bilateral lower lobes and the official chest x-ray is pending. I will defer this to the hospitalist service. cc: Jb Crawford MD
[2017-03-31 06:48] LABS: MANUAL DIFF NEEDED? NO
[2017-03-31 06:49] LABS: BASO% 0.3 % (0.0-0.8); EOS# 0.05 X1000 (0.0-0.7); EOS% 0.8 % (0.0-10.0); HEMATOCRIT 37.7 % (42.0-52.0); HEMOGLOBIN 12.3 g/dL (14.0-18.0); LYMPH# 0.92 X1000 (1.2-3.4); LYMPH% 14.9 % (20.5-51.1); MCH 32.7 PG (27-31); MCHC 32.6 g/dL (33-37); MCV 100.3 FL (81-99); MONO# 0.61 X1000 (0.11-0.59); MONO% 9.9 % (1.7-9.3); MPV 10.3 FL (7.4-10.4); NEUT% 74.1 % (42.2-75.2); PLT 182 X1000 (130-400); RBC 3.76 XMIL (4.7-6.1)
[2017-03-31 07:24] LABS: CALCIUM 8.6 mg/dL (8.8-10.2); MAGNESIUM 2.1 mg/dL (1.5-2.7); POTASSIUM 5.9 mmol/L (3.5-5.1)
--- NOTE | 2017-03-31 07:31 | Diag Imaging Result Doc PS360 ---
CHEST-PORTABLE - 03/30/2017 INDICATION: Dyspnea, Crackles TECHNIQUE: COMPARISON: 03/28/2017 FINDINGS: Stable pacemaker and sternotomy wires. Stable significant cardiomegaly. Stable pulmonary vascular congestion. No focal infiltrates, pneumothorax, or pleural effusion. IMPRESSION: Essentially stable cardiomegaly and pulmonary vascular congestion. Electronically signed by Aly Smith 03/31/2017 7:29 AM
[2017-03-31] MEDS ORDERED: VELTASSA PO ONE (07:41)
[2017-03-31] MEDS ORDERED: ALBUTEROL 0.5% INH CONC FOR HYPERKALEMIA INH ONE (07:43)
[2017-03-31] MEDS: APRESOLINE PO SCH ×2 (08:42→22:16)
[2017-03-31] MEDS: CENTRUM SILVER PO SCH (08:42)
[2017-03-31] MEDS: COREG PO SCH ×3 (08:42→22:36)
[2017-03-31] MEDS: MIRALAX PO SCH (08:42)
[2017-03-31] MEDS: FLOMAX PO SCH (08:42)
[2017-03-31] MEDS: ASPIRIN EC PO SCH (08:42)
[2017-03-31] MEDS ORDERED: LASIX PO SCH (09:00)
--- NOTE | 2017-03-31 09:08 | CONSULTATION ---
DATE OF CONSULTATION: 03/31/2017 REASON FOR CONSULTATION: Acute kidney injury. ATTENDING PHYSICIAN: Balaji Figueroa MD. HISTORY OF PRESENT ILLNESS: Mr. Farrell is a 66-year-old man that I have seen before for acute kidney injury. He has a history of mitral valve replacement x2, systolic heart failure and paroxysmal atrial fibrillation, pacemaker placement. 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 He came into the ER at [place] with crampy abdominal pain, nausea. His evaluation was concerning for abdominal angina and so he underwent a CT of the abdomen with IV contrast. This study demonstrated suspicious mass on the right kidney that was confirmed by ultrasound. It was 2.4 cm in size. Otherwise, there was some evidence of pulmonary edema and ascites and severe abdominal vascular disease. He has been treated with IV heparin and symptomatic management as well as IV antibiotics. In this context, his kidney function has deteriorated and so we were asked to see him. Specifically, his creatinine was 1.4 on presentation. His baseline is likely 1.0 to 1.5. It has risen progressively to 1.9. His relates that his urine was decreased in volume and dark in color but this morning it is improved with larger volume and clear in character and color. He had a bad night last night with nausea, vomiting and associated cough. During this paroxysm of coughing, he became short of breath and cyanotic. The symptoms passed without any consequences. Chest x-ray was performed in that context, which demonstrated stable pulmonary vascular congestion. He has been receiving IV fluids in the last 24 hours. PAST MEDICAL HISTORY: As above, he also has a history of COPD. CURRENT MEDICATIONS: Include Albuterol, Veltassa x1, aspirin, carvedilol, metronidazole, fluticasone, heparin, hydralazine, hydromorphone, levofloxacin, multivitamin, normal saline at 35 mL an hour, ondansetron, MiraLAX, promethazine, tamsulosin. ALLERGIES: Hydrocodone, acetaminophen, amlodipine. SOCIAL HISTORY: He is and lives with his who is a registered nurse. She retired from [employer] several years ago. No alcohol or tobacco. FAMILY HISTORY: Noncontributory. REVIEW OF SYSTEMS: Otherwise negative. PHYSICAL EXAMINATION: Vital Signs: Blood pressure 126/45, heart rate 76, respiration 18, afebrile. Generally: He is an elderly man, lying at 45 degrees in no acute distress. Skin: Warm and dry with ecchymoses. Eyes/ENT: Conjunctivae are pink and moist with corneal arcus present. Pupils are equal and round. Oropharynx is clear and dry. Neck: Supple. Trachea is midline. Neck vein distention is visible. Heart: Regular with systolic murmur consistent with mitral regurgitation. No metallic heart tones appreciated. No gallops. Lungs: Have equal breath sounds. No crackles or wheezes. Abdomen: Soft, nontender. Bowel sounds are present. Extremities: Have trace edema. No clubbing or cyanosis. Neurologic Exam: Grossly nonfocal. IMPRESSION: Acute kidney injury. Likely multifactorial acute tubular necrosis. Those numbers have continued to rise this morning. His urine output is improved and the character has improved as well and so my expectation is that he will have recovery of renal function over the next 24-48 hours. No further imaging is required. We will check urine electrolytes, urine eosinophils, etc. I have reviewed his medications and no changes are required. If his creatinine rises again tomorrow, we will have to decrease his levofloxacin dose. cc: Wilbur Brizuela MD
--- NOTE | 2017-03-31 11:13 | EKG Report ---
Test Performed on : 03/31/2017 08:16:37 AM Test Reason : Hyperkalemia Blood Pressure : / mmHG Vent. Rate : 081 BPM Atrial Rate : 081 BPM P-R Int : 194 ms QRS Dur : 188 ms QT Int : 468 ms P-R-T Axes : 091 -70 098 degrees QTc Int : 543 ms Atrial-sensed ventricular-paced rhythm Abnormal ECG When compared with ECG of 26-JUL-2016 23:37, Vent. rate has increased BY 10 BPM Confirmed by Abdi Webb DO ([id number]) on 04/02/2017 10:29:28 AM
--- NOTE | 2017-03-31 12:14 | PROGRESS NOTE ---
DATE: 03/31/2017 SUBJECTIVE: Patient states he is feeling a little better. He did have some respiratory issues during the night. He has also had elevated renal function tests, BUN and creatinine. He has been seen by Dr. Brizuela. He states his pain is a little better today. OBJECTIVE: Vital Signs: Temperature 97.4 degrees, pulse 75, respirations 18, blood pressure 126/45. ASSESSMENT AND PLAN: 1. Abdominal pain. 2. Right kidney mass. He has been seen by Dr. Rankin. 3. Elevated BUN and creatinine, acute kidney injury. He has been seen by Dr. Brizuela. 4. Abnormal CT scan showing severe vascular disease. PLAN: Continue symptomatic treatment. Continue to follow up with Dr. Brizuela, Dr. Rankin and Dr. Crawford. We will plan for a colonoscopy on Monday for further evaluation. He is currently on a heparin drip. That will be held on Monday morning for a procedure at approximately 12:30 Monday. I have discussed the procedure along with benefits and risks with the patient. He wishes to proceed. I have discussed this case with Dr. Baron and Dr. Levy. Dictated by VAISHALI Bonds for Shiraz Baron MD cc: VAISHALI Kuhn MD
--- NOTE | 2017-03-31 15:11 | PROGRESS NOTE ---
DATE: 03/31/2017 SUBJECTIVE: This patient states that he is feeling about the same. He is not complaining of shortness of breath or chest pain just mild abdominal discomfort. OBJECTIVE: Vital Signs: Temperature 97.4 degrees, pulse 75, respiratory rate 18, blood pressure 126/45, O2 saturation 97% on 2 L of nasal cannula. HEENT: Head normocephalic. No trauma. PERRLA. Neck: Supple. No JVD. No masses. Central trachea. Chest: Clear to auscultation. No wheezing. No rales. Abdomen: Soft. Mild generalized tenderness to palpation. Extremities: No edema. No clubbing. No cyanosis. Neurological: The patient is alert, oriented times x3. No focal neurological deficits. LABORATORY: WBC 6.1, hemoglobin 12.3, hematocrit 37.7, platelets 182,000. Sodium 139, potassium 5.9, chloride 102, bicarbonate 21, BUN 44, creatinine 1.9, glucose 121, calcium 8.6, magnesium 2.1. ASSESSMENT AND PLAN: 1. Abdominal pain. This is probably related with inferior mesenteric artery stenosis. Dr. Crawford from General Surgery has been following this patient closely as well as Gastroenterology Department. The plan is to go ahead and get a colonoscopy on Monday. We will stop the heparin drip in the morning so he can get the procedure. 2. Inferior mesenteric artery stenosis as above. 3. Acute on chronic kidney disease. The BUN and creatinine are higher today but the urine output has been improving. Nephrology Department is following this patient. 4. Hyperkalemia. I will use VELTASSA and breathing treatment to decrease the potassium. Will monitor. 5. Right renal mass. Urology department has been consulted. They already evaluated this patient. There is no plan for surgery or any kind of intervention at this moment. 6. History of atrial fibrillation. Continue with heparin drip. 7. Mitral valve replacement x2. Aware. 8. Implantable cardioverter/defibrillator pacemaker. aware. 9. History of systolic heart failure. Continue with home medications, I have stopped the furosemide secondary to kidney injury. 10. History of deep vein thrombosis in July 2016. Continue with anticoagulation as I mentioned before. cc: Balaji Figueroa MD
[2017-03-31 16:29] LABS: URINE MICRO REVIEW NEEDED? NO; URINE SOURCE VOIDED
[2017-03-31] MEDS ORDERED: HEPARIN 25,000 UNITS/D5W 25,000 UNIT/250 ML IV.SOLN IV SCH (16:30)
[2017-03-31] MEDS: LEVAQUIN 500 MG/D5W 500 MG/100 ML IVPB IV SCH (16:32)
[2017-03-31 16:43] LABS: BILIRUBIN URINE NEGATIVE (NEGATIVE); BLOOD URINE NEGATIVE (NEGATIVE); COLOR YELLOW; GLUCOSE URINE NEGATIVE (NEGATIVE); LEUKOCYTES URINE NEGATIVE (NEGATIVE); NITRITE URINE NEGATIVE (NEGATIVE); PROTEIN URINE TRACE mg/dL (NEGATIVE); TURBIDITY URINE CLEAR (CLEAR); UROBILINOGEN URINE NORMAL (NORMAL)
[2017-03-31 16:52] LABS: UR EPITHELIAL CELLS <10 /HPF (<10); URINE BACTERIA NEGATIVE /HPF; URINE RBC <10 /HPF (<10); URINE WBC <10 /HPF (<10)
[2017-03-31 17:04] LABS: UR CREAT RANDOM 63.9 mg/dL (14-26); UR PROT RANDOM 21.1 mg/dL
[2017-03-31] MEDS: ZOFRAN IV PRN (19:45)
[2017-03-31] MEDS: DILAUDID IV PRN (22:15)
[2017-04-01] MEDS: FLAGYL 500 MG/NS 500 MG/100 ML IVPB IV SCH ×3 (05:13→18:02)
[2017-04-01] MEDS: ZOFRAN IV PRN ×2 (05:38→19:59)
[2017-04-01] MEDS: DILAUDID IV PRN ×2 (05:38→23:26)
[2017-04-01 07:03] LABS: MANUAL DIFF NEEDED? NO
[2017-04-01 07:17] LABS: BASO% 0.2 % (0.0-0.8); EOS# 0.08 X1000 (0.0-0.7); EOS% 1.3 % (0.0-10.0); HEMATOCRIT 33.6 % (42.0-52.0); HEMOGLOBIN 11.1 g/dL (14.0-18.0); LYMPH# 0.87 X1000 (1.2-3.4); LYMPH% 13.8 % (20.5-51.1); MCH 32.6 PG (27-31); MCV 98.5 FL (81-99); MONO# 0.57 X1000 (0.11-0.59); MPV 10.3 FL (7.4-10.4); NEUT% 75.7 % (42.2-75.2); PLT 189 X1000 (130-400); RBC 3.41 XMIL (4.7-6.1)
[2017-04-01 07:48] LABS: ALBUMIN 2.9 g/dL (3.5-5.0); CALCIUM 7.7 mg/dL (8.8-10.2); POTASSIUM 4.1 mmol/L (3.5-5.1)
[2017-04-01] MEDS: HEPARIN 25,000 UNITS/D5W 25,000 UNIT/250 ML IV.SOLN IV SCH ×3 (09:05→18:35)
[2017-04-01] MEDS: PHENERGAN IV PRN (09:09)
[2017-04-01] MEDS: APRESOLINE PO SCH ×2 (09:10→20:07)
[2017-04-01] MEDS: MIRALAX PO SCH (09:10)
[2017-04-01] MEDS: ASPIRIN EC PO SCH (09:10)
[2017-04-01] MEDS: COREG PO SCH ×2 (09:10→20:07)
[2017-04-01] MEDS: CENTRUM SILVER PO SCH (09:10)
[2017-04-01] MEDS: FLOMAX PO SCH (09:10)
[2017-04-01] MEDS: NS 1,000 ML IV SCH (09:18)
--- NOTE | 2017-04-01 10:59 | PROGRESS NOTE ---
DATE: 04/01/2017 SUBJECTIVE: The patient complains of intermittent lower abdominal pain and nausea. OBJECTIVE: He is afebrile. Vital signs are stable.General: He is a drowsy and sleeping this morning but arousable. After being aroused he was awake and alert and oriented x3. GI: Soft, nondistended. Mildly tender in the lower abdomen. No rebound or guarding. He does have bowel sounds. LABORATORY: White blood cell count 6.3, hemoglobin 11.1. BUN 39, creatinine 1.5, potassium 4.1. ASSESSMENT/PLAN: A 66-year-old male with GUILLERMO stenosis and abdominal pain. The plan is for colonoscopy on Monday. He also has a right renal mass which is which is to be evaluated by Urology. He has acute on chronic kidney disease. Nephrology is following him. cc: Simone Ralph MD
--- NOTE | 2017-04-01 12:20 | PROGRESS NOTE ---
DATE: 04/01/2017 SUBJECTIVE: When I evaluated this patient he was resting in bed, sleeping. He had recently received pain medication and Phenergan. His is at the bedside and I discussed the case with her, all her questions were answered. OBJECTIVE: Vital Signs: Temperature 97.6 degrees, pulse 70, respiratory rate 24, blood pressure 107/68, oxygen saturation 98 on room air. HEENT: Head normocephalic. No trauma. PERRLA. Neck: Supple. No JVD. No masses. Central trachea. Chest: Clear to auscultation. No wheezing. No rales. Abdomen: Soft. Mild generalized tenderness to palpation. Extremities: No edema. No clubbing. No cyanosis. Neurological: The patient is sleeping. He just received pain medication and Phenergan, as per the , he has been alert and oriented. LABORATORY: WBC 6.3, hemoglobin 11.1, hematocrit 33.6, platelet 189,000. Sodium 136, potassium 4.1, chloride 105, bicarbonate 19, BUN 39, creatinine 1.5, glucose 115, calcium 7.7. Phosphorus 2.7, magnesium 1.8, albumin 2.9. ASSESSMENT AND PLAN: 1. Abdominal pain. This patient has inferior mesenteric artery stenosis, Surgery Department and Gastroenterology Department are following this patient closely. The plan is to go ahead and get a colonoscopy done on Monday. Case discussed with the and also the patient yesterday. 2. Inferior mesenteric artery stenosis, as above. 3. Acute on chronic kidney disease. BUN and creatinine are getting better, Nephrology Department on board. For now I will continue with the same management. 4. Hyperkalemia resolved. 5. Right renal mass. Urology Department has evaluated already the patient. No plan for surgery or any kind of intervention at this moment. 6. History of atrial fibrillation. Continue with heparin drip. 7. History of deep vein thrombosis in July 2016. Continue with anticoagulation as mentioned before. 8. Mitral valve replacement x2. Aware. 9. Implantable cardioverter/defibrillator. Aware. 10. History of systolic heart failure. Continue with the same management for now. I will restart his home medications once the kidney function is better. cc: Balaji Figueroa MD
[2017-04-01] MEDS: LEVAQUIN 500 MG/D5W 500 MG/100 ML IVPB IV SCH (17:00)
[2017-04-01 22:03] LABS: ALLEN TEST YES; BE -3.9 mmoll (-3.0-3.0); BLOOD TYPE ARTERIAL; DRAW SITE R RADIAL; METHB 0.4 % (0.0-1.5); O2(CT) 16.9 mL/dL (15.0-23.0); PCO2(98.6) 27 mmHg (35-45); PO2(98.6) 130 mmHg (60-100); SAMPLE BLOOD; SAO2 99.8 % (95.0-100.0); THB 12.1 g/dL (11.5-17.4); pH(98.6) 7.45 (7.35-7.45)
[2017-04-01 22:04] LABS: MODALITY CANNULA
[2017-04-01 22:06] LABS: MANUAL DIFF NEEDED? NO
[2017-04-01 22:12] LABS: BASO% 0.3 % (0.0-0.8); EOS# 0.03 X1000 (0.0-0.7); EOS% 0.4 % (0.0-10.0); HEMOGLOBIN 11.9 g/dL (14.0-18.0); LYMPH# 0.89 X1000 (1.2-3.4); LYMPH% 12.5 % (20.5-51.1); MCH 33.1 PG (27-31); MCHC 33.1 g/dL (33-37); MONO# 0.76 X1000 (0.11-0.59); MONO% 10.7 % (1.7-9.3); MPV 10.5 FL (7.4-10.4); NEUT% 76.1 % (42.2-75.2); PLT 222 X1000 (130-400)
[2017-04-01 22:31] LABS: CALCIUM 8.5 mg/dL (8.8-10.2); MAGNESIUM 1.9 mg/dL (1.5-2.7); POTASSIUM 4.8 mmol/L (3.5-5.1)
[2017-04-02] MEDS: FLAGYL 500 MG/NS 500 MG/100 ML IVPB IV SCH ×4 (02:14→23:51)
[2017-04-02] MEDS: SODIUM CHLORIDE 0.9% INJ PRN (02:15)
[2017-04-02] MEDS: PHENERGAN IV PRN ×2 (02:15→14:22)
[2017-04-02] MEDS: DILAUDID IV PRN ×2 (07:17→23:51)
--- NOTE | 2017-04-02 07:34 | Diag Imaging Result Doc PS360 ---
EXAM: FLAT/UPRIGHT ABD/1 VIEW CHEST HISTORY: SOB, Abdominal Distention TECHNIQUE: AP upright portable chest at 2130 COMMENT: There is cardiomegaly as there was on 03/30/2017. The lungs are essentially clear and stable in appearance. IMPRESSION: Cardiomegaly. Electronically signed by Calvin Chinchilla 04/02/2017 7:32 AM
[2017-04-02 08:28] LABS: BASO% 0.1 % (0.0-0.8); EOS# 0.02 X1000 (0.0-0.7); EOS% 0.2 % (0.0-10.0); HEMATOCRIT 35.7 % (42.0-52.0); HEMOGLOBIN 11.7 g/dL (14.0-18.0); LYMPH# 0.93 X1000 (1.2-3.4); LYMPH% 11.4 % (20.5-51.1); MANUAL DIFF NEEDED? YES; MCH 32.1 PG (27-31); MCHC 32.8 g/dL (33-37); MCV 98.1 FL (81-99); MONO# 0.68 X1000 (0.11-0.59); MONO% 8.3 % (1.7-9.3); MPV 10.4 FL (7.4-10.4); PLT 225 X1000 (130-400); RBC 3.64 XMIL (4.7-6.1)
[2017-04-02 08:38] LABS: ALBUMIN 3.6 g/dL (3.5-5.0); CALCIUM 8.4 mg/dL (8.8-10.2); POTASSIUM 4.8 mmol/L (3.5-5.1)
[2017-04-02] MEDS: FLOMAX PO SCH (09:07)
[2017-04-02] MEDS: CENTRUM SILVER PO SCH (09:07)
[2017-04-02] MEDS: APRESOLINE PO SCH ×2 (09:07→23:51)
[2017-04-02] MEDS: ASPIRIN EC PO SCH (09:07)
[2017-04-02] MEDS: COREG PO SCH ×2 (09:07→23:50)
[2017-04-02] MEDS: MIRALAX PO SCH (09:08)
[2017-04-02 09:15] LABS: LYMPHS 10 % (21-51); MONO 6 % (1-9)
[2017-04-02] MEDS ORDERED: DULCOLAX PR ONE (09:32)
[2017-04-02] MEDS: HEPARIN 25,000 UNITS/D5W 25,000 UNIT/250 ML IV.SOLN IV SCH (09:50)
--- NOTE | 2017-04-02 09:52 | Diag Imaging Result Doc PS360 ---
EXAM: CHEST-PORTABLE HISTORY: SOB TECHNIQUE: AP portable upright at 0800 COMMENT: There is cardiomegaly. Compared to the previous study of 04/01/2017 the appearance of the chest has not changed significantly. IMPRESSION: Cardiomegaly. Electronically signed by Calvin Chinchilla 04/02/2017 9:50 AM
[2017-04-02] MEDS ORDERED: NS 1,000 ML IV SCH (10:45)
--- NOTE | 2017-04-02 11:14 | PROGRESS NOTE ---
DATE: 04/02/2017 SUBJECTIVE: This patient is resting comfortably in bed. His abdomen is a little bit more distended compared with yesterday. X-ray of the abdomen and thorax did not show anything new, did show any new changes. He is still using IV medication for his pain. His urine is concentrated, and the patient is not eating or drinking too much so I will increase the rate of his IV fluids. Also, his creatinine has been increasing a little bit. OBJECTIVE: Vital Signs: Temperature 97.4 degrees, pulse 76, respiratory rate 24, blood pressure 98/73, oxygen saturation 98 on 2 L of nasal cannula. HEENT: Head normocephalic. No trauma. PERRLA. Neck: Supple. No JVD. No masses. Central trachea. Chest: Clear to auscultation. No wheezing. No rales. Abdomen: Soft. Mild generalized tenderness to palpation. Mild distention. Extremities: No edema. No clubbing. No cyanosis. Neurological Examination: The patient is alert. He is oriented x3. No focal deficits. Laboratory: WBC 8.1, hemoglobin 11.7, hematocrit 35.7, platelets 225,000. Sodium 137, potassium 4.8, chloride 101, bicarbonate 20, BUN 43, creatinine 1.8, glucose 142, calcium 8.4, albumin 3.6. ASSESSMENT AND PLAN: 1. Abdominal pain. This patient has inferior mesenteric artery stenosis. Surgery department and gastroenterology department are following this patient closely. The plan is to go ahead and get a colonoscopy done tomorrow. Case has been discussed again with the and the patient. We are going to start his bowel prep today. The nurse will call the director of radio services to have a second choice in case this patient does not tolerate his GoLYTELY. 2. Inferior mesenteric artery stenosis as above. 3. Mild dehydration. I will increase the rate of the intravenous fluids to 75. 4. Acute on chronic kidney disease. BUN and creatinine are a little bit higher compared with yesterday. This is likely prerenal. I increased the rate of the intravenous fluids. 5. Hyperkalemia, resolved. 6. Right renal mass. Urology department evaluated this patient already. No plan for surgery or any kind of intervention at this moment. 7. History of atrial fibrillation. Continue with heparin drip. 8. History of deep venous thrombosis in July of 2016. Continue with anticoagulation as I mentioned before. 9. Mitral valve replacement x2. Aware. 10. History of systolic heart failure. Continue with the same management for now. I will restart his home medications when his kidney function is better. cc: Balaji Figueroa MD
[2017-04-02] MEDS ORDERED: GOLYTELY PO ONE (14:00)
[2017-04-02] MEDS ORDERED: HEPARIN 25,000 UNITS/D5W 25,000 UNIT/250 ML IV.SOLN IV SCH ×2 (14:04→14:31)
--- NOTE | 2017-04-02 15:03 | PROGRESS NOTE ---
DATE: 04/02/2017 SUBJECTIVE: The patient continues to complain of generalized abdominal pain, nausea, vomiting, and cough. OBJECTIVE: Vital signs: He is afebrile. Vital signs are stable. General: He is a frail- appearing, somewhat ill-appearing man, sitting up in a chair. He said he recently had a bowel movement this morning after suppository. He did not notice any blood in it. Urine output 1100 mL yesterday. Gastrointestinal: Soft. Mildly tender all over. No rebound or guarding. He does have good bowel sounds. LABORATORY: White blood cell count 8, hemoglobin 11. BUN 43, creatinine 1.8, glucose 142. ASSESSMENT AND PLAN: This is a 66-year-old male with abdominal pain, unclear etiology. He does have some known inferior mesenteric artery stenosis. The plan is for a colonoscopy tomorrow. We will see what these results are and follow along. cc: Simone Ralph MD
[2017-04-02] MEDS: LEVAQUIN 500 MG/D5W 500 MG/100 ML IVPB IV SCH (17:30)
[2017-04-02] MEDS: ZOFRAN IV PRN (19:01)
[2017-04-03] MEDS: FLAGYL 500 MG/NS 500 MG/100 ML IVPB IV SCH ×4 (03:59→22:18)
[2017-04-03 07:23] LABS: HEMATOCRIT 33.8 % (42.0-52.0); HEMOGLOBIN 11.1 g/dL (14.0-18.0); MCH 32.3 PG (27-31); MCHC 32.8 g/dL (33-37); MCV 98.3 FL (81-99); MPV 10.4 FL (7.4-10.4); RBC 3.44 XMIL (4.7-6.1)
[2017-04-03] MEDS ORDERED: FLEET ENEMA PR ONE (10:15)
--- NOTE | 2017-04-03 10:15 | PROGRESS NOTE ---
DATE: 04/03/2017 SUBJECTIVE: Patient resting in bed. He has had episodes with nausea and vomiting any time he gets up and moves around. He is scheduled for a colonoscopy later on today. His states that he has not had any bowel movement, and that he just had an enema this morning without result. OBJECTIVE: Vital Signs: Temperature 98.5 degrees, pulse 71, respiratory rate 24, blood pressure 100/76. Intake 1.3 L, output 150 mL, plus some voids not measured. His , who is a registered nurse, states that she has measured about 500 mL out while she has been with him yesterday. General: This is an elderly gentleman, resting in bed. He is in mild distress secondary to nausea, but nothing acute. He is awake, alert, oriented x4, and is able to assist with exam. HEENT: Normocephalic, atraumatic. Oral mucosa is moist. ALEXA. Conjunctivae pink. Neck: Supple. Trachea midline. Trace JVD noted in a reclined position. Cardiovascular: Regular rate and rhythm. He has a systolic murmur noted. Pulmonary: He has equal excursion. There is no wheeze or rhonchi, but does have decreased breath sounds to the bases. Abdomen : Distended, but soft. It is tender to palpation. He has hypoactive bowel sounds. Extremities : He has 1+ to 2+ pretibial edema. He has 2+ pedal edema. He has a dependent edema to the backs of the hips and thighs. Integumentary: He is pale. Skin is warm and dry otherwise. No rash or lesion. Neurologic: Grossly nonfocal. LABORATORY DATA: WBC of 7.3, hemoglobin 11.1, hematocrit 33.8, platelet count 185,000. Sodium 136, potassium 4.8, chloride 101, CO2 of 21, BUN 43, creatinine 1.7 (1.8, 1.7, 1.5, 1.9). ASSESSMENT AND PLAN: 1. Acute kidney injury, multifactorial acute tubular necrosis. His renal function stabilized early in the weekend, but has not really showed significant improvement since then. He has been hovering around 1.7 to 1.8 now for 3 days. His urine output is adequate by report, but he is definitely in fluid volume overload. He is not having significant issues with shortness of breath, but he does have moderate edema noted. He has not been on Lasix or spironolactone since he has been in the hospital. His states that his urine has gotten dark again. His albumin level is moderately low at 2.9, which can be contributing to his worsening edema, along with the fluid that he has been receiving over the weekend. It is felt that he was having some prerenal issues, and his fluids have been increased to 75 mL an hour. They were decreased back down to keep vein open. We would add a dose of Lasix today. 2. Medication review. He is still on Levaquin every 24 hours. His renal function has not worsened from the previous; he has just held steady. Will continue to monitor closely. If his numbers do worsen, he will need to have this reduced to every 48 hours. 3. Fluid volume. Again, see #1 for plan. 4. Electrolytes, acid-base balance in target. 5. Blood pressure marginal. Dictated by VAISHALI Garner for Wilbur Brizuela MD Patient seen, data reviewed, discussed with Keyshawn Vazquez on 04/03/17. I agree with the above assessment and plan of care. cc: Wilbur Brizuela MD [facility]
[2017-04-03] MEDS: APRESOLINE PO SCH ×2 (11:11→22:37)
[2017-04-03] MEDS ORDERED: XYLOCAINE-MPF 2% ONE (11:38)
[2017-04-03] MEDS ORDERED: DIPRIVAN 1% ONE (11:40)
[2017-04-03] MEDS ORDERED: NEO-SYNEPHRINE ONE (11:51)
[2017-04-03] MEDS ORDERED: EPHEDRINE ONE (11:56)
[2017-04-03] MEDS ORDERED: LASIX IV ONE (12:00)
[2017-04-03] MEDS ORDERED: LASIX 200 MG in NS 25 ML IV ONE (12:00)
[2017-04-03] MEDS ORDERED: XARELTO PO ONE (12:38)
[2017-04-03] MEDS: COREG PO SCH ×2 (13:49→22:37)
[2017-04-03] MEDS: FLOMAX PO SCH (13:49)
[2017-04-03] MEDS: ASPIRIN EC PO SCH (13:49)
[2017-04-03] MEDS: MIRALAX PO SCH (13:50)
[2017-04-03] MEDS: CENTRUM SILVER PO SCH (13:50)
[2017-04-03] MEDS: PHENERGAN IV PRN (14:04)
[2017-04-03] MEDS: DILAUDID IV PRN (14:04)
--- NOTE | 2017-04-03 15:02 | PROGRESS NOTE ---
DATE: 04/03/2017 SUBJECTIVE: When I evaluated this patient, this patient was resting comfortably in bed. His abdomen is still a little distended, but, compared with yesterday, it is about the same. Today, he has more prominent in his lower extremity edema. He has fluid overload, and he his kidney function is about the same. Nephrology Department is following this patient. They have started this patient on furosemide. OBJECTIVE: Vital Signs: Temperature 97.8 degrees, pulse 60, respiratory rate 25, blood pressure 97/66, oxygen saturation 100% on 2 L nasal cannula. HEENT: Head normocephalic. No trauma. PERRLA. Neck: Supple. No JVD. No masses. Central trachea. Chest: Clear to auscultation. No wheezing. No rales. Abdomen: Soft. Mild generalized tenderness to palpation, with mild to moderate distention. Cardiovascular: RRR. Systolic murmur. Extremities: There is 1 to 2+ lower extremity edema. No clubbing. No cyanosis. Neurological: The patient is alert and oriented x3. No focal deficits. LABORATORY: WBC 7.3, hemoglobin 11.1, hematocrit 33.8, platelet 185,000. Sodium 136, potassium 4.8, chloride 101, bicarbonate 21, BUN 43, creatinine 1.7, glucose 124, calcium 7.9, albumin 2.9. ASSESSMENT AND PLAN: 1. Abdominal pain. This patient has inferior mesenteric artery stenosis. Surgery Department and Gastroenterology Department are following this patient closely. He is getting a colonoscopy today. 2. Abdominal distention, as above. 3. Inferior mesenteric artery stenosis. He is getting a colonoscopy today. We will follow the results. 4. Mild dehydration, resolved. Today he is overloaded. 5. Npncn-[id number]-wslskae kidney disease. BUN and creatinine have been a little bit higher than baseline, but have been stable for the past 3 days. Nephrology Department evaluated this patient and they are using furosemide for him. 6. Right renal mass. Urology Department evaluated this patient already. No plans for surgery or any kind of intervention at this moment. 7. History of atrial fibrillation. This patient has been on heparin drip. This treatment has been stopped to get the colonoscopy done. He will be restarted on Xarelto after procedure. 8. Mitral valve replacement x2. Aware. 9. History of systolic heart failure. Continue with the same management for now. He is getting furosemide today. cc: Balaji Figueroa MD
--- NOTE | 2017-04-03 16:35 | OPERATIVE NOTE ---
PROCEDURE DATE: 04/03/2017 PROCEDURE: Colonoscopy, polypectomy, biopsy. PREOPERATIVE DIAGNOSIS: Abdominal pain. POSTOPERATIVE DIAGNOSES: 1. Ulcerous rectum, stercoral. 2. Mild colitis sigmoid colon. 3. Colon polyp sigmoid colon, polypectomy performed. MEDICATION USED: MAC as per Anesthesia. SCOPE USED: Olympus CFHQ-190. HISTORY: This is a 58-year-old gentleman admitted to hospital with abdominal pain. Endoscopy was done to identify the etiology and treat accordingly. Specifically to rule out any ischemic injury. DESCRIPTION OF PROCEDURE: Informed consent obtained from the patient. The procedure, risks, benefits, alternatives were explained in layman's terms. He understood. All his pertinent questions answered. Patient was brought to the endoscopy unit and was premedicated as per Anesthesia. After adequate sedation, while he was lying in left lateral position, digital rectal exam was performed, which was normal. The scope was then gently introduced into the rectum and advanced under direct vision through the parts of colon all the way to the cecum. The cecum was identified by ileocecal valve and appendiceal orifice. Scope was withdrawn paying careful attention to details. Preparation was fair. The visualized portion of the colon revealed normal cecum, ascending colon, transverse colon, and most of the descending colon. In the proximal sigmoid colon, there was a polyp noted, which was 5-6 mm in size, sessile smooth surface. Polypectomy was performed by snare and cautery without difficulty. In the distal sigmoid colon, linear erosions were seen. These were superficial erosions with mild hyperemia, nonspecific sort of mild colitis. Biopsy was obtained. Rectum was examined both straight and retroflexed view, which revealed a few ulcers in the distal rectum, which is suggestive of stercoral ulcers. Biopsy of those using cold biopsy forceps were obtained. The scope was then removed. Patient tolerated the procedure with no complications noted. Patient was then transferred to the recovery area in a stable condition. IMPRESSION: 1. Colon polyp, polypectomy performed. 2. Mild colitis biopsied ischemic versus nonspecific. 3. Stercoral ulcer rectum, biopsied. RECOMMENDATION: I would continue him on MiraLAX, but I will add Tonya-Colace two every night. Advised to continue high-fiber and high residue diet with plenty of fluids to drink. Maintain vital signs to maintain his blood pressure to maintain the integrity of the colon mucosa. Followup the biopsy report and once stable, discharge. He will follow up with me in the office. Further plans made according to his progress and the biopsy reports. cc: MD Balaji Gage MD Khurshid Yousuf, MD
[2017-04-03] MEDS: LEVAQUIN 500 MG/D5W 500 MG/100 ML IVPB IV SCH (18:05)
[2017-04-04] MEDS: PERICOLACE PO SCH ×2 (01:57→21:09)
[2017-04-04] MEDS: ZOFRAN IV PRN ×2 (02:38→09:12)
[2017-04-04] MEDS: FLAGYL 500 MG/NS 500 MG/100 ML IVPB IV SCH ×4 (02:42→21:08)
--- NOTE | 2017-04-04 06:21 | PROGRESS NOTE ---
DATE: 04/04/2017 SUBJECTIVE: Patient doing okay. Reviewed notes from colonoscopy. No signs of ischemic bowel. He did have what appears to be potential for stercoral ulcers and mild colitis but again, no signs of ischemic bowel. He says he is doing okay. No major issues. OBJECTIVE: Vital Signs: Patient is currently afebrile. His vital signs are stable. General Examination: No acute distress. Resting comfortably. HEENT: Normocephalic and atraumatic. Pupils equal, round, react to light. Mucous membranes moist. Oropharynx benign. Neck: Supple. Trachea midline. Cardiovascular: Regular rate and rhythm. Lungs: Grossly clear. Abdomen: Soft, less distended, less tender. No peritoneal signs. No pain out of portion to exam. Extremities: Moves all extremities. Neurologic: Grossly intact. Skin: No signs of jaundice. Vascular: All extremities perfused. Laboratory: Reviewed labs from yesterday. His creatinine is still 1.7. He does have labs from this morning pending. ASSESSMENT/PLAN: A 66-year-old male with multiple medical comorbidities presenting with a right renal mass and potential for ischemic bowel. 1. Abdominal pain. At this time, it does not appear that he has ischemic bowel. Recommend continued current treatment. No immediate surgical intervention planned. He does have some pathology that is pending. We will follow up with the results. 2. Right kidney mass. At this time, being managed by urology. 3. Multiple medical comorbidities. At this time, being managed by the hospitalist service. I will defer to them. cc: Jb Crawford MD
[2017-04-04 07:38] LABS: HEMATOCRIT 34.5 % (42.0-52.0); HEMOGLOBIN 11.5 g/dL (14.0-18.0); MCH 33.1 PG (27-31); MCHC 33.3 g/dL (33-37); MCV 99.4 FL (81-99); MPV 10.6 FL (7.4-10.4); RBC 3.47 XMIL (4.7-6.1)
[2017-04-04 07:58] LABS: CALCIUM 8.6 mg/dL (8.8-10.2); POTASSIUM 3.8 mmol/L (3.5-5.1)
[2017-04-04] MEDS: CENTRUM SILVER PO SCH (09:16)
[2017-04-04] MEDS: ASPIRIN EC PO SCH (09:16)
[2017-04-04] MEDS: APRESOLINE PO SCH ×2 (09:16→09:17)
[2017-04-04] MEDS: MIRALAX PO SCH (09:16)
[2017-04-04] MEDS: FLOMAX PO SCH (09:16)
[2017-04-04] MEDS: COREG PO SCH ×2 (09:16→20:04)
[2017-04-04 10:43] LABS: UR CREAT RANDOM 52.3 mg/dL (14-26)
--- NOTE | 2017-04-04 11:06 | Diag Imaging Result Doc PS360 ---
EXAM: CHEST-PORTABLE HISTORY: SOB TECHNIQUE: AP portable upright at 1050 COMMENT: There is cardiomegaly. The appearance of the chest has not changed significantly since 04/02/2017. There has been no appreciable change since 07/26/2016. IMPRESSION: Cardiomegaly. Electronically signed by Calvin Chinchilla 04/04/2017 11:04 AM
--- NOTE | 2017-04-04 11:23 | PROGRESS NOTE ---
DATE: 04/04/2017 SUBJECTIVE: This patient is complaining today of abdominal discomfort and shortness of breath. He has some rales bilaterally so I will order a chest x-ray. Nephrology Department evaluated this patient in the morning and as per the she was told that they will use diuretics today. The nurse will check that with Nephrology Department. I will follow with a chest x-ray. Surgery Department evaluated this patient today and there is no plan for surgery at this moment. We will continue to monitor, pending pathology report. Gastroenterology Department also following this patient closely. OBJECTIVE: Vital Signs: Temperature 97.2 degrees, pulse 89, respiratory rate 28, blood pressure 96/74, O2 saturation HEENT: Head normocephalic. No trauma. PERRLA. Neck: Supple. No JVD. No masses. Central trachea. Chest: Bilateral rales mostly at the bases. Decreased breath sounds at the bases as well. Abdomen: Soft, mild to moderately distended. Mild generalized tenderness to palpation. Extremities: 1+ edema. No clubbing. No cyanosis. Neurological: The patient is alert and oriented x3. No focal neurological deficits. LABORATORY: WBC 8.3, hemoglobin 11.5, hematocrit 34.5, platelet 183,000. Sodium 137, potassium 3.8, chloride 98, bicarbonate 21, BUN 47, creatinine 1.7. Glucose 102. Calcium 8.6. Albumin 3. ASSESSMENT AND PLAN: 1. Abdominal pain. This patient has inferior mesentery artery stenosis. Surgery Department evaluated this patient and no plan for surgery at this point. Gastroenterology Department did a colonoscopy yesterday that showed ulcerosa rectocolitis sigmoid colon, colon polyp sigmoid colon, polypectomy performed. We will continue following their recommendations. 2. Abdominal distention. As above. Continue with the stool softener. We will try to decrease the frequency of the pain medication I already talked to the patient about it. 3. Acute on chronic kidney disease. BUN and creatinine has been higher than baseline but has been stable for the past 4 days. Nephrology Department has been taking care of this patient as well. 4. Right renal mass. Urology Department evaluated this patient already. No plans for surgery or any kind of intervention at this moment. 5. History of atrial fibrillation. This patient has been on heparin drip. That was stopped yesterday and we restarted already his Xarelto. 6. Mitral valve replacement x2. Aware. 7. History of systolic heart failure. Continue with the same management for now. His blood pressure has been borderline low. Continue to monitor. cc: Balaji Figueroa MD
[2017-04-04] MEDS ORDERED: LASIX IV ONE (12:30)
--- NOTE | 2017-04-04 13:14 | PROGRESS NOTE ---
DATE: 04/04/2017 SUBJECTIVE: Patient still report some nausea. Abdominal pain has slightly improved. He reports some shortness of breath. He has been followed by nephrology and they plan to start diuretics. Patient had colonoscopy yesterday with findings showing ulcer in the rectum, stercoral, mild colitis in the sigmoid colon, and colon polyp in the sigmoid colon with polypectomy performed. Waiting on biopsy results. The patient has passed some gas. No significant bowel movement today. He has been started on MiraLAX and Tonya-Colace. OBJECTIVE: Vital Signs: Temperature 98.5 degrees, pulse 84, respirations 30, blood pressure 92/64. General: The patient is awake, alert, no acute distress. HEENT: Normocephalic, atraumatic. Pupils equal, round, reactive to light. Sclerae nonicteric. Respiratory: Some bilateral congestion at the bases. Decreased breath sounds. Abdomen: Soft. He is distended with mild tenderness in the epigastric area. Extremities: With some edema noted. LABORATORY: Hematology: White count 8.39, hemoglobin 11.5, hematocrit 34.5, MCV 99.4, platelet 183,000. Chemistry: Sodium 137, potassium 3.8, chloride 98, CO2 21, BUN 47, creatinine 1.7, and glucose 102. ASSESSMENT: 1. Abdominal pain. 2. Nausea. 3. Abdominal distention with constipation. Recommended to continue laxatives as ordered. 4. Acute on chronic kidney disease. Following with nephrology. 5. Right renal mass. Urology has seen the patient. PLAN: Continue symptomatic treatment and supportive care. Continue MiraLAX and Tonya-Colace. Continue other management per medical team. Awaiting pathology results from colonoscopy further plans will be made as needed. I have discussed this case with Dr. Baron. Dictated by VAISHALI Bonds for Shiraz Baron MD cc: VAISHALI Kuhn MD
[2017-04-04] MEDS ORDERED: LASIX 200 MG in NS 25 ML IV ONE (13:15)
--- NOTE | 2017-04-04 13:23 | PROGRESS NOTE ---
DATE: 04/04/2017 SUBJECTIVE: He had another bad night with severe coughing. He has some sputum, but minimal whitish. No chest pain. Ongoing shortness of breath. He had an excellent response to diuretics yesterday. OBJECTIVE: Vital Signs: Blood pressure 92/64, heart rate 84, respirations 30, afebrile. Intake 1 L and output 3 L. General: On physical exam, no acute distress. Skin: Warm and dry. Eyes: Conjunctivae are pink. Neck: Neck veins are not visible. Heart: Regular without gallops. Lungs: Have equal breath sounds. No crackles or wheezes. Abdomen: Soft, nontender. Bowel sounds are present. Extremities: Have 1+ edema. No clubbing or cyanosis. LABORATORY DATA: Sodium 137, potassium 3.8, chloride 98, bicarbonate 21. BUN 47, creatinine 1.7, hemoglobin 11.5. IMPRESSION: 1. Volume overload. Nice response to diuretics yesterday. Still has significant edema. Chest x- ray without pulmonary edema, however. We will dose with furosemide 200 mg times one again today. 2. Electrolytes, in target. 3. Acid base, in target. 4. Acute kidney injury. His creatinine baseline is around 1.4, and he has been stable at 1.7 for the last several days. 5. Anemia is in target. 6. Blood pressure low over the last day. Will stop his hydralazine. cc: Wilbur Brizuela MD
[2017-04-04] MEDS: XARELTO PO SCH (16:14)
[2017-04-04] MEDS: LEVAQUIN 500 MG/D5W 500 MG/100 ML IVPB IV SCH (16:14)
[2017-04-04] MEDS ORDERED: CALMOSEPTINE OINTMENT TOP PRN (18:40)
[2017-04-04] MEDS: XANAX PO PRN (20:01)
[2017-04-05] MEDS: FLAGYL 500 MG/NS 500 MG/100 ML IVPB IV SCH ×4 (04:50→21:13)
--- NOTE | 2017-04-05 06:42 | PROGRESS NOTE ---
DATE: 04/05/2017 SUBJECTIVE: The patient is doing okay. He says he is feeling better, but he still has some pain in his lower quadrant. He still has a productive cough, and he does have some posttussive emesis. OBJECTIVE: Vital Signs: The patient is currently afebrile. His vital signs have been stable. General: No acute distress. Resting comfortably. HEENT: Normocephalic, atraumatic. Pupils equal, round, reactive to light. Mucous membranes moist. Oropharynx benign. Neck: Supple. Trachea midline. Cardiovascular: Regular rate and rhythm. Lungs: Some coarse sounds noted. Abdomen: Soft, less distended, less tender. No peritoneal signs. No pain out of proportion to exam. Extremities: Moves all extremities. Neurologic: Grossly intact. Skin: No signs of jaundice. Vascular: All extremities perfused. LABORATORY DATA: Currently pending for this morning. ASSESSMENT AND PLAN: A 66-year-old male with multiple medical comorbidities presenting with a right renal mass and potential for ischemic bowel. 1. Abdominal pain. At this time, I still do not think it is related to ischemic bowel. He does have some colitis like picture on colonoscopy, but no signs of ischemic bowel. His pathology on the biopsies showed just an ulcer in his rectum and no histologic abnormalities noted. I had a lengthy discussion with the son yesterday and the family this morning about options. At this time, again there is no clinical indication that he has ischemic bowel. He does have collateralization around his inferior mesenteric artery, but again, it is not completely occluded. He does have peripheral vascular disease noted on CT scan, which may need intervention in the future. I discussed the options of transfer to [facility], or [place] for vascular opinion, but again, I suspect we will have some hesitation in opening the inferior mesenteric artery given the fact that there is flow and collateralization and no signs of ischemic bowel with colonoscopy or CT scan, but I did discuss this as an option. I also discussed seeing him as an outpatient and referring him down to one of those centers as an outpatient for further evaluation. The family is going to discuss this and let me know what they want to do. The logistics of this transfer may be best served by transferring him to another hospitalist service at one of those locations, but we will need to follow up with the family's opinion. 2. Right kidney mass, at this time being managed by Urology. 3. Multiple medical comorbidities, at this time being managed by the hospitalist service. cc: Jb Crawford MD
[2017-04-05 07:35] LABS: HEMATOCRIT 35.1 % (42.0-52.0); HEMOGLOBIN 11.9 g/dL (14.0-18.0); MCH 32.5 PG (27-31); MCHC 33.9 g/dL (33-37); MCV 95.9 FL (81-99); MPV 10.6 FL (7.4-10.4); RBC 3.66 XMIL (4.7-6.1)
[2017-04-05 07:54] LABS: ALBUMIN 3.1 g/dL (3.5-5.0); CALCIUM 8.3 mg/dL (8.8-10.2); POTASSIUM 3.6 mmol/L (3.5-5.1)
[2017-04-05] MEDS: MIRALAX PO SCH (09:26)
[2017-04-05] MEDS: ZOFRAN IV PRN ×2 (09:26→14:45)
[2017-04-05] MEDS: CENTRUM SILVER PO SCH (09:27)
[2017-04-05] MEDS: ASPIRIN EC PO SCH (09:27)
[2017-04-05] MEDS: FLOMAX PO SCH (09:27)
[2017-04-05] MEDS: COREG PO SCH ×2 (09:27→21:35)
--- NOTE | 2017-04-05 15:12 | PROGRESS NOTE ---
DATE: 04/05/2017 SUBJECTIVE: Patient rested a little better last night according to his . He was given some p.r.n. medication. OBJECTIVE: Vital Signs: Temperature 98, pulse 91, respiratory rate 16, blood pressure 102/76. Intake 740 mL, output 2.5 L. General: On exam, elderly gentleman sitting up in bed. Awake, alert, no acute distress. HEENT: Normocephalic, atraumatic. Conjunctivae pink. Neck: Supple. Trachea midline. No JVD. Cardiovascular: Regular rate and rhythm. No murmur or gallop. Pulmonary: Equal excursion. He has some decreased breath sounds bilaterally, but no wheeze noted. Abdomen: Distended, soft. Positive bowel sounds. : Not inspected. He is voiding. Extremities: Continues with 1+ pedal edema. His pretibial edema has improved somewhat. No clubbing or cyanosis. Is moving extremities. Integumentary: Skin is pale, warm, and dry. LAB DATA: WBC of 9.0, hemoglobin 11.9. Sodium 137, potassium 3.6, CO2 of 23, BUN 43, creatinine 1.6. ASSESSMENT AND PLAN: 1. Fluid volume overload. The patient had a nice response to diuretics yesterday. He is in negative fluid territory today. Renal function has actually improved. He has been at 1.7 for several days and 1.6 today. His creatinine baseline is 1.4. Stop diuretics. rg 2. Electrolytes, acid-base balance, anemia. These are stable. 3. Hypotension, is improved. Dictated by VAISHALI Garner for Wilbur Brizuela MD Patient seen, data reviewed, discussed with Keyshawn Vazquez on 04/05/17. I agree with the above assessment and plan of care. rg cc: Wilbur Brizuela MD [facility]
--- NOTE | 2017-04-05 15:35 | PROGRESS NOTE ---
DATE: 04/05/2017 SUBJECTIVE: The patient states he is feeling a little better today. Abdominal pain is a little better. He has had bowel movements. Still has a productive cough. PHYSICAL EXAMINATION: Vital Signs: Temperature 97.4 degrees, pulse 89, respirations 19, blood pressure 88/52. LABORATORY: Hematology: White count 9.03, hemoglobin 11.9, hematocrit 35.1, MCV 95.9, and platelets 185,000. Chemistry: Sodium 137, potassium 3.6, chloride 99, CO2 of 23, BUN 43, creatinine 1.6, glucose 114. ASSESSMENT: 1. Abdominal pain. 2. Right kidney mass. Seen by Dr. Rankin. 3. Volume overload. The patient was given diuretics. He is being followed by Dr. Brizuela. PLAN: The patient is also being followed by Dr. Crawford, who talked with the patient and his today about options. From what I understand from the , they were going to follow up with Dr. Crawford as an outpatient once discharged, and further plans will be made. We will continue to follow. Recommend to continue MiraLAX and pericolace combination. Recommended the patient follow up with us, once discharged, in 2 to 3 weeks. The patient and voiced understanding. I have discussed this case with Dr. Baron. Dictated by VAISHALI Bonds for Shiraz Baron MD cc: VAISHALI Kuhn MD
[2017-04-05] MEDS: LEVAQUIN 500 MG/D5W 500 MG/100 ML IVPB IV SCH (17:08)
[2017-04-05] MEDS: XARELTO PO SCH (17:08)
[2017-04-05] MEDS ORDERED: ZOFRAN PO PRN (17:45)
--- NOTE | 2017-04-05 18:21 | PROGRESS NOTE ---
DATE: 04/05/2017 SUBJECTIVE: Patient reports feeling fine. Not having good appetite, but abdominal pain according to him is getting better. OBJECTIVE: Vital Signs: Temperature 97.4, heart rate 89, respiratory rate 19, blood pressure 88/52, O2 saturation 98% on 2 L nasal cannula. General: This is a 66-year-old male lying in bed in no acute distress. HEENT: Head is normocephalic, atraumatic. Anicteric sclerae and pale conjunctivae. Mucous membranes moist. Neck: Supple. No JVD noted. No carotid bruits. No lymphadenopathy. No thyromegaly. Cardiovascular: S1, S2 heard. No murmurs, gallops, or rubs. Regular rate and rhythm. Respiratory: Bilateral rales mostly in both bases. Decreased breath sounds globally. Abdomen: Soft, a little bit distended. Mild generalized tenderness to palpation. Bowel sounds present. No organomegaly. Extremities: 1+ pitting edema in both lower extremities. No clubbing or cyanosis noted. Neurological: Patient is alert and oriented x3. He is sitting in chair. No focal deficits. LABORATORY DATA: White cell count 9.03, hemoglobin 11.9, hematocrit 35.1, platelets 185,000. BMP remarkable for creatinine 1.6. ASSESSMENT AND PLAN: 1. Abdominal pain. This patient was diagnosed with inferior mesenteric artery stenosis. Dr. Crawford from General Surgery has been following this patient. He is not completely sure that this pain is related completely to ischemic bowel. At this point, the plan is to continue with the same medical management. Currently he is on levofloxacin and metronidazole. Gastroenterology is also following this patient. Colonoscopy yesterday showed rectal colitis sigmoid colon. At this time, we are going to continue with the same management. He may probably need to be referred to a big center like [place] or [facility] in case this vascular problem needs to be addressed in the near future. 2. Acute on chronic kidney disease. Creatinine is around baseline. 3. Right renal mass. Urology has been consulted and they are not planning to do any surgery in the near future. 4. History of atrial fibrillation. Patient has been restarted on Xarelto and he is doing fine. No signs of bleeding. 5. Mitral valve replacement x2. Aware. 6. History of systolic heart failure. We will continue with the same management now. Blood pressure has been borderline low, but at this time, I prefer to see how he does today and if blood pressure is still borderline, we will need to reduce the dose of beta blockers. cc: Domenico Barros MD
[2017-04-05] MEDS: XANAX PO PRN (21:13)
[2017-04-05] MEDS: PERICOLACE PO SCH (21:35)
[2017-04-06 01:27] LABS: CALCIUM 8.5 mg/dL (8.8-10.2); MAGNESIUM 1.9 mg/dL (1.5-2.7); POTASSIUM 3.3 mmol/L (3.5-5.1)
[2017-04-06] MEDS: FLAGYL 500 MG/NS 500 MG/100 ML IVPB IV SCH ×4 (03:44→20:24)
--- NOTE | 2017-04-06 06:04 | PROGRESS NOTE ---
DATE: 04/06/2017 SUBJECTIVE: The patient is doing well. He reports she has some indigestion but otherwise he is doing better. OBJECTIVE: Vital Signs: Patient is currently afebrile. His vital signs have been stable. General: No acute distress. Resting comfortably. HEENT: Normocephalic atraumatic. Pupils equal, round, react to light. Mucous membranes moist. Oropharynx benign. Neck : Supple. Trachea midline. Cardiovascular: Regular rate and rhythm. Lungs: Grossly clear with some coarse sounds noted bilaterally. Abdomen: Soft, less tender. No peritoneal signs. No pain out of proportion to exam. Extremities: Moves all extremities. Neurologic: Grossly intact. Skin: No signs of jaundice. Vascular: All extremities perfused. LABORATORY: From this morning pending. ASSESSMENT AND PLAN: A 66-year-old male with multiple medical comorbidities presenting with a right renal mass and the potential for ischemic bowel. 1. Abdominal pain at this time. Overall, clinical picture appears to be improving. Again, I do not clinically suspect he has any current ischemic or near ischemic bowel. I have had multiple discussions with the family about options, but at this point, I think he is getting near to the point where he can be discharged and we can likely do all of this evaluation as an outpatient. I will defer exact discharge timing to hospitalist, but I think he is again close to being discharged. 2. Right renal mass. At this time, being managed by Urology. 3. Multiple medical comorbidities currently being managed by the hospitalist service cc: MD HANNY Gage
[2017-04-06] MEDS: FLOMAX PO SCH (09:02)
[2017-04-06] MEDS: ASPIRIN EC PO SCH (09:02)
[2017-04-06] MEDS: COREG PO SCH (09:02)
[2017-04-06] MEDS: CENTRUM SILVER PO SCH (09:02)
[2017-04-06] MEDS: MIRALAX PO SCH (09:03)
[2017-04-06] MEDS ORDERED: KLOR-CON PO ONE (13:03)
[2017-04-06] MEDS ORDERED: LASIX IV ONE (13:14)
--- NOTE | 2017-04-06 15:23 | PROGRESS NOTE ---
DATE: 04/06/2017 SUBJECTIVE: Patient is sitting up in a chair. He continues to have shortness of breath. OBJECTIVE: Vital Signs: Temperature 97.8 degrees, pulse 93, respiratory rate 16, blood pressure 99/68. Intake 1.4 L. Output 1.4 L. PHYSICAL EXAMINATION: General: Elderly gentleman sitting up in a chair. He is awake, alert. He is in no acute distress. HEENT: Normocephalic, atraumatic. Conjunctivae pale. Oral mucosa moist. Neck: Supple. No JVD. Cardiovascular: Regular rate and rhythm. No murmur or gallop. Pulmonary: He has some rhonchi and rales bilaterally with decreased breath sounds to the bases. He remains on O2 supplementation. Abdomen: Soft, with distention continued with generalized tenderness to palpation. : He is voiding. Extremities: 1+ pretibial edema. No clubbing, cyanosis. Integumentary: Skin dry, warm. LAB DATA: Sodium 138, potassium 3.3, chloride 99, CO2 27, BUN 39, creatinine 1.6. ASSESSMENT AND PLAN: 1. Acute on chronic kidney disease. Renal function has remained stable. The patient has received several large doses of Lasix over the last several days with no change to renal function. Continue to monitor. 2. Fluid volume status. We had held diuretics previously and see that he received a dose today. I understand from the family the primary is perhaps to discharge him home tomorrow and to restart his home dose. 3. Abdominal pain with inferior mesenteric artery stenosis followed by primary and surgery. 4. Right renal mass followed by Urology. No intervention is planned. 5. Electrolytes. Sodium and potassium are acceptable. 6. Fluid volume. He is euvolemic overnight. 7. Blood pressure. He is mildly hypotensive. Dictated by VAISHALI Garner for Wilbur Brizuela MD Patient seen, data reviewed, discussed with Keyshawn Vazquez on 04/06/17. I agree with the above assessment and plan of care. cc: Wilbur Brizuela MD [facility]
[2017-04-06] MEDS: PROTONIX IV SCH (16:02)
[2017-04-06] MEDS: SODIUM CHLORIDE 0.9% INJ SCH (16:02)
[2017-04-06] MEDS: XARELTO PO SCH (16:03)
[2017-04-06] MEDS: LEVAQUIN 500 MG/D5W 500 MG/100 ML IVPB IV SCH (16:03)
--- NOTE | 2017-04-06 16:17 | PROGRESS NOTE ---
DATE: 04/06/2017 SUBJECTIVE: Patient reports feeling fine. Just noticed as more swelling in both legs. Reports that his Lasix has been withheld. No abdominal pain. OBJECTIVE: Vital Signs: Temperature 97.8, heart rate 103, respiratory 19, blood pressure 99/68, O2 saturation 98% on 2 L nasal cannula. General Examination: This is a 66-year-old, male, lying in bed, in no acute distress. HEENT: Head is normocephalic, atraumatic. Anicteric sclerae and pale conjunctivae. Mucous membranes moist. Neck: Supple. No JVD noted. No carotid bruits. No lymphadenopathy. No thyromegaly. Cardiovascular: S1, S2 heard. No murmurs, gallops, or rubs. Regular rate and rhythm. Respiratory: Some rales in both bases. Improved in comparing with previous days. Abdomen: Soft, a little bit distended, but nontender to palpation. Bowel sounds present. No organomegaly. Extremities: 1+ pitting edema in both lower extremities. No clubbing, cyanosis noted. Neurological: Patient is alert and oriented x3. Moves 4 extremities. LABORATORY DATA: There are no labs from today. ASSESSMENT AND PLAN: 1. Abdominal pain. The initial diagnosis was inferior mesenteric artery stenosis. Dr. Crawford is following this patient. He does not think that this is truly pain relief to ischemic bowel. In any case, the pain is getting better. So, from his standpoint, the patient can be discharged. Also Gastroenterology has been following this patient and from his standpoint, he can be seen in the office in a couple weeks and can be discharged from gastrointestinal point. Currently, he is on levofloxacin and metronidazole that he received for 9 days. At this point, I think we are going to keep this patient 1 more day in the hospital. He will complete 10 days of antibiotics. He will need to take more antibiotics at home. We will provide patient information to follow with Dr. Crawford and Dr. Baron. 2. Acute on chronic kidney disease. Creatinine is around baseline. Dr. Brizuela from Nephrology is following this patient. 3. Right renal mass. Urology has been consulted and they are not planning to do any surgery in the near future. Follow up as needed as per Urology. 4. History of atrial fibrillation. Currently, this patient is on Xarelto and he is doing fine. No signs of bleeding. 5. Mitral valve replacement x2. Aware. No chest pain. No difficulty in breathing. 6. History of systolic heart failure. We will continue with the same management. Because blood pressure is kind of borderline low, we decided to decrease the doses of Coreg to 6.25 p.o. b.i.d. 7. Peripheral lower extremity edema. Patient is at home on Lasix 20 mg daily. That has been held. Now, as per patient request, we are going to provide 1 dose of Lasix IV and then we will restart this medication oral tomorrow. 8. Physical deconditioning. Physical therapy has been consulted and will see what they recommend tomorrow if he needs to go to rehab, or he can be discharged to home with home health. cc: Domenico Barros MD
[2017-04-06] MEDS: XANAX PO PRN (20:23)
[2017-04-06] MEDS: PERICOLACE PO SCH (20:23)
[2017-04-06] MEDS ORDERED: COREG PO SCH (21:00)
[2017-04-07] MEDS: PHENERGAN IV PRN (02:15)
--- NOTE | 2017-04-07 06:41 | PROGRESS NOTE ---
DATE: 04/07/2017 SUBJECTIVE: patient doing well. He did have what sounds like a reaction to the Phenergan this morning but otherwise is doing okay. OBJECTIVE: Vital Signs: Patient is currently afebrile. His vital signs have been stable. General: No acute distress. Resting comfortably. HEENT: Normocephalic atraumatic. Pupils equal, round, react to light. Mucous membranes moist. Oropharynx benign. Neck: Supple. Trachea midline. Cardiovascular: Regular rate and rhythm. Lungs: Grossly clear. Abdomen: Soft. Essentially nontender this morning. Extremities: Moves all extremities. Neurologic: Grossly intact. Skin: No signs of jaundice. Vascular: All extremities perfused. LABORATORY: Reviewed labs from yesterday. Creatinine was 1.6 yesterday. ASSESSMENT AND PLAN: A 66-year-old male with multiple medical comorbidities presenting with a right renal mass and potential for ischemic bowel. 1. Abdominal pain. At this time, I think his overall clinical and picture is improving. I think he is close to being able to be discharged I would like to see him in mu office in next week and discussed this with the and the patient. They will call the office to make an appointment. 2. Right renal mass. At this time, being managed by Urology. 3. Multiple medical comorbidities currently being managed by the hospitalist service. cc: Jb Crawford MD
[2017-04-07 06:59] LABS: BASO% 0.1 % (0.0-0.8); EOS# 0.15 X1000 (0.0-0.7); EOS% 1.5 % (0.0-10.0); HEMOGLOBIN 11.9 g/dL (14.0-18.0); IMM GRAN# 0.03 X1000 (0.0-0.04); IMM GRAN% 0.3 % (0.0-0.5); LYMPH# 1.26 X1000 (1.2-3.4); LYMPH% 12.9 % (20.5-51.1); MANUAL DIFF NEEDED? YES; MCHC 33.1 g/dL (33-37); MCV 96.8 FL (81-99); MONO# 0.95 X1000 (0.11-0.59); MONO% 9.7 % (1.7-9.3); MPV 10.3 FL (7.4-10.4); NEUT% 75.5 % (42.2-75.2); PLT 197 X1000 (130-400); RBC 3.72 XMIL (4.7-6.1)
[2017-04-07 07:32] LABS: CALCIUM 8.5 mg/dL (8.8-10.2); POTASSIUM 4.1 mmol/L (3.5-5.1)
[2017-04-07 07:41] LABS: LYMPHS 6 % (21-51); MONO 8 % (1-9); NRBC 6 % (0-0)
[2017-04-07] MEDS: FLAGYL 500 MG/NS 500 MG/100 ML IVPB IV SCH ×3 (07:47→16:35)
--- NOTE | 2017-04-07 08:08 | Diag Imaging Result Doc PS360 ---
EXAM: CHEST-2 VIEWS HISTORY: sob TECHNIQUE: Two views COMPARISON: 04/04/2017 FINDINGS: A heart valve has been replaced. The heart is enlarged. There is a left-sided pacemaker. The vessels aren't distended. No pleural effusions. No pneumonia. IMPRESSION: Cardiomegaly Electronically signed by Daquan Raphael 04/07/2017 8:06 AM
--- NOTE | 2017-04-07 10:57 | PROGRESS NOTE ---
DATE: 04/07/2017 DATE: 04/07/2017. SUBJECTIVE: His cough has improved. No sputum. They expect discharge today. OBJECTIVE: Vital Signs: Blood pressure 101/72, heart rate 92, respirations 17, afebrile. Intake 500 mL. Output 200 mL. General: No acute distress. Skin: Warm and dry. Neck: There is no visible jugular venous wave, though his external jugular veins are distended. Heart: Regular. Lungs: Have equal breath sounds. No crackles or wheezes. Abdomen: Soft, nontender. Bowel sounds are present. Extremities: Have no edema, clubbing, or cyanosis. LABORATORY DATA: Chem: Sodium 138, potassium 4.1, chloride 99, bicarbonate 26, BUN 35, creatinine 1.7. CBC: Hemoglobin 11.9. IMAGING STUDIES: Chest x-ray: No pulmonary edema. IMPRESSION: Acute kidney injury overlying chronic kidney disease. His creatinine is still not quite back to baseline. I expect this is related to diuretic use. I have instructed the patient and his to withhold furosemide at home. He is to weigh daily. If his weight rises more than 3 pounds, then he can take a dose of furosemide. We will arrange for outpatient follow up. Electrolytes, acid-base, and blood pressure are all within target. cc: Wilbur Brizuela MD
[2017-04-07] MEDS: MIRALAX PO SCH (11:48)
[2017-04-07] MEDS: ASPIRIN EC PO SCH (11:48)
[2017-04-07] MEDS: FLOMAX PO SCH (11:49)
[2017-04-07] MEDS: COREG PO SCH (11:49)
[2017-04-07] MEDS: CENTRUM SILVER PO SCH (11:49)
--- NOTE | 2017-04-07 12:44 | PROGRESS NOTE ---
DATE: 04/07/2017 SUBJECTIVE: Patient states he is feeling a little better. He is having bowel movements. He is taking Tonya-Colace and MiraLAX. He is hoping to go home today. He is able to eat small amounts. OBJECTIVE: Vital signs: Temperature 97.5 degrees, pulse 92, respirations 17, blood pressure 101/72. LABORATORY: Hematology: White count 9.75, hemoglobin 11.9, hematocrit 36.0, MCV 96.8, platelet 197,000. Chemistry sodium 138, potassium 4.1, chloride 99, CO2 26, BUN 35, creatinine 1.7. ASSESSMENT AND PLAN: 1. Abdominal pain improving. 2. Acute kidney injury/chronic kidney disease. He is being followed by Dr. Brizuela. 3. Right renal mass being followed by urology. PLAN: Continue symptomatic treatment and supportive care. Patient will follow up with Dr. Crawford, Dr. Brizuela, and Dr. Rankin as recommended after discharge. Continue MiraLAX and Tonya-Colace and we will follow up with him in the office in 2-3 weeks after discharge or sooner as needed. Patient and voiced understanding. I have discussed this case with Dr. Baron. Dictated by VAISHALI Bonds for Shiraz Baron MD cc: VAISHALI Kuhn MD
[2017-04-07 14:17] VITALS: BP 104/68
[2017-04-07] MEDS: XARELTO PO SCH (16:35)
[2017-04-07] MEDS: SODIUM CHLORIDE 0.9% INJ SCH (16:35)
[2017-04-07] MEDS: LEVAQUIN 500 MG/D5W 500 MG/100 ML IVPB IV SCH (16:35)
[2017-04-07] MEDS: PROTONIX IV SCH (16:35)
--- NOTE | 2017-04-07 19:51 | DISCHARGE SUMMARY ---
ADMISSION DATE: 03/28/2017 DISCHARGE DATE: 04/07/2017 DISCHARGE DIAGNOSES: 1. 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 2. Acute on chronic kidney disease. 3. Right renal mass. 4. History of atrial fibrillation. 5. Mitral valve replacement x2. 6. Systolic heart failure, not in any exacerbation. 7. Peripheral lower extremity edema. 8. Physical deconditioning. CONSULTATIONS: 1. Jb Crawford MD from General Surgery. 2. Theron Rankin MD from General Surgery. 3. Shiraz Baron MD from GI. 4. Wilbur Brizuela MD from Nephrology. PROCEDURES: 1. Abdomen and pelvis CT done on admission showed a suspicious mass in the right kidney, severe vascular disease with trace ascites, cardiomegaly and possible mild pulmonary edema, lymphatic changes of liver. 2. Renal ultrasound showed a solid mass in the right kidney as previously demonstrated on the CT. 3. Echocardiogram showed an ejection fraction in the 10% range with severe global hypokinesis. There is also moderate tricuspid regurgitation. No pericardial effusion seen 4. Colonoscopy, polypectomy and biopsy performed by Dr. Baron. The finding was mild colitis in the sigmoid colon and colon polyps. Polypectomy performed. HOSPITAL COURSE: This is a 66-year-old, male who presented to the emergency department complaining of abdominal pain that began the day of admission. He rates the pain 10/10 in intensity. He denies any vomiting, diarrhea, fever or chills. He has some nausea and belching. 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 Dr. Crawford from General Surgery had been involved and he thinks until discharge that this patient does not look to have any occlusion of the mesenteric artery. Patient's pain was getting better. After 10 days that he was on levofloxacin and metronidazole, patient is now doing fine. Dr. Crawford said that this patient is improving and he can be followed up in the office. Because he received 10 days of metronidazole and levofloxacin, the patient does not need to have more antibiotics at home. Also, Dr. Baron from GI was consulted. For the right renal mass Dr. Rankin was consulted and said that this patient does not need to have emergent urology intervention and he will see him in the office for possible right radical nephrectomy. So patient was getting better day by day. He has a history of chronic atrial fibrillation and he is on anticoagulation. He has also a pacemaker and cardioverter. For a history of systolic heart failure, he was doing fine. Continue with home medications. Because of worsening renal failure he was recommended to hold any Lasix unless the patient gained a lot weight. Now I am planning to send this patient home. The patient will be sent with home health. Patient is supposed to have followup with every specialty that we have mentioned today. CONDITION AT DISCHARGE: Patient being discharged in stable condition. DISCHARGE EXAMINATION: Vital Signs: Temperature 97.5 degrees, heart rate 92, respiratory rate 17, blood pressure 104/68, O2 saturation 98% on 2 L nasal cannula. General Examination: This is a chronically ill-looking, frail, 66-year-old, male, lying in bed, in no acute distress. HEENT: Head is normocephalic, atraumatic. Anicteric sclerae and pale conjunctivae. Mucous membranes moist. Neck: Supple. No JVD noted. No carotid bruits. No lymphadenopathy. No thyromegaly. Cardiovascular examination: S1, S2 heard. No murmurs, gallops, or rubs. Regular rate and rhythm. Respiratory Examination: Clear bilaterally to auscultation. No work of breathing or using accessory muscles. Abdomen: Soft, nontender to palpation. Bowel sounds present. No organomegaly. Extremities: No clubbing, cyanosis, or edema. Peripheral pulses present in both legs. 1+ pitting edema in both lower extremities. DISCHARGE DISPOSITION: The patient is going home with home health with physical therapy 2-3 times per day. FOLLOWUP: 1. Followup with Dr. Crawford in his office. 2. Followup with Dr. Rankin in his office with . 3. Followup with Dr. Baron in his office to. DISCHARGE MEDICATIONS: 1. Xanax 0.5 mg 1 tablet p.o. at bedtime. 2. MiraLAX 1 pack p.o. daily. 3. Zofran ODT 1 tablet p.o. every 4 hours as needed for pain. 4. Aspirin 81 mg, 1 tablet p.o. daily. Flonase 1 spray intranasal as directed. 5. Singular 10 mg 1 tablet p.o. daily. 6. Cetirizine 10 mg 1 tablet p.o. daily. 7. Uloric 40 mg 1 tablet p.o. daily. 8. Tylenol with Codeine #2, 1 tablet p.o. every 4-6 hours as needed. 9. Flomax 1 tablet p.o. daily. 10. Xarelto 1 tablet, 20 mg p.o. daily. 11. Coreg 6.25, 1 tablet p.o. b.i.d. 12. Multivitamin 1 tablet p.o. daily. DISCHARGE TIME: 45 minutes. cc: Domenico Barros MD
[2017-06-16 19:39] LABS: ALBUMIN 4.3 g/dL (3.5-5.0); CALCIUM 9.7 mg/dL (8.8-10.2); POTASSIUM 3.9 mmol/L (3.5-5.1)
== END 2017-04-07 18:11 | disposition home health service (06) ==
LOC: P.ED 09:31 → 3N 14:17 → SUATTDRO 14:17
PROVIDERS: ATTEND Internal Medicine